=== PATIENT | male | born 1980 | race Hispanic/Latino ===

== ENCOUNTER 2016-10-14 10:52 | Emergency (ER) | payer SELFPAY ==
[2016-10-14 11:26] VITALS: BP 131/92
[2016-10-14 12:41] LABS: Urine Drugs of Abuse Note Disclamer
[2016-10-14 12:51] LABS: Bilirubin,Urine NEG (Negative); Blood,Urine NEG (Negative); Ketones,Urine NEG (Negative); Leukocyte Esterase,Urine NEG (Negative); Mucus,Urine FEW /HPF; Nitrite,Urine NEG (Negative); Protein,Urine <15 mg/dL mg/dL (Negative); Urobilinogen,Urine < 2.0 mg/dL (<2.0)
--- NOTE | 2016-10-14 13:01 | Emergency Department Report ---
HPI - General Chief Complaint: Medical Clearance Time Seen by Provider: 10/14/16 12:01 - HPI HPI: 36-year-old male past medical history diabetes presents with complaint of running out of his insulin one week ago. Patient states he is on Humalog 70/ 30. Has not taken any insulin in the last several days. Patient states he feels somewhat fatigued. Denies any chest pain palpitations no nausea no vomiting shortness of breath. Patient does complain of increased urinary frequency and thirst. ED Past Medical Hx - Medications Home Medications: Home Medications Medication Instructions Recorded Confirmed Last Taken Type HumaLOG VIAL 10/14/16 10/07/16 History 27 units Insulin NPH Hum/Reg Insulin Hm 100 unit SQ QDAY #1 insuln.pen 10/14/16 Unknown Rx [Humulin 70/30 Kwikpen] ED Review of Systems ROS: Stated complaint: HYPERGLYCEMIA Other details as noted in HPI Constitutional: denies: chills, fever Eyes: denies: eye pain, eye discharge, vision change ENT: denies: ear pain, throat pain Respiratory: denies: cough, shortness of breath, wheezing Cardiovascular: denies: chest pain, palpitations Endocrine: no symptoms reported, see HPI, increased thirst, increased urine Gastrointestinal: denies: abdominal pain, nausea, diarrhea Genitourinary: denies: urgency, dysuria Musculoskeletal: denies: back pain, joint swelling, arthralgia Skin: denies: rash, lesions Neurological: denies: headache, weakness, paresthesias Psychiatric: denies: anxiety, depression Hematological/Lymphatic: denies: easy bleeding, easy bruising Physical Exam - Physical Exam Vital Signs: Vital Signs 10/14/16 11:23 Temperature 98 F Pulse Rate 101 H Respiratory 18 Rate Blood Pressure 131/92 O2 Sat by Pulse 99 Oximetry General: General: Patient appears somewhat uncomfortable. Accompanied by his sister Oriented x 3, slightly agitated affect . Ambulating without difficulty. Head: Normocephalic, atraumatic, no visible or palpable masses, depressions, or scaring. Eyes: BENJA, EOMI Heart: S1-S2 no murmurs Lungs: Clear to auscultation laterally Abdomen: Bowel sounds normal, no tenderness, organomegaly, masses, or hernia Back: Spine normal without deformity or tenderness, no CVA tenderness Neurologic: CN 2-12 normal. ED Course Vital Signs 10/14/16 11:23 Temperature 98 F Pulse Rate 101 H Respiratory 18 Rate Blood Pressure 131/92 O2 Sat by Pulse 99 Oximetry ED Medical Decision Making - Lab Data Result diagrams: 10/14/16 Unknown - Medical Decision Making A/P: Hyperglycemia, uncontrolled diabetes 1-patient openly admitted he has not used his insulin in approximately one week. Patient appears somewhat fatigued. I convinced patient that I'm concerned that he may be seriously hyperglycemic and I want to assess labs on him to determine if he is entering diabetic ketoacidosis. Patient stated that he just wants his prescription for insulin and will follow-up with a primary doctor. Patient's sister present for this conversation. Patient was alert and oriented 3, fully lucid and conversant. I explained to the patient that he is at risk for diabetic coma and if he is hyperglycemic and acidotic. I explained to the patient the risks of leaving before I can fully determine this. Patient stated that he understood but simply wanted to go home and uses insulin at home. Requesting a prescription for his insulin. Pt claims that he is on Humalog 70/30. States he uses 15 units per day and sliding scale with meals. States he checks his glucose levels with a monitor at home. 2-patient elected to leave the ED for acute finish my full assessment, signed out AGAINST MEDICAL ADVICE despite my consultation that he stay for further testing and full assessment. Business Analyst [employer] Darin and patient's sister present for this conversation. 3-sided with prescription for his insulin and I provided referrals for primary care. I urged the patient's return to the ED as soon as possible at his earliest convenience or to return if he experiences any severe weakness fatigue lethargy nausea or vomiting chest pain shortness of breath. Patient's sister states that she will keep a close eye on him as well. 4- I notified Dr. Vu of my encounter with this patient Critical care attestation.: If time is entered above; I have spent that time in minutes in the direct care of this critically ill patient, excluding procedure time. ED Disposition Clinical Impression: Hyperglycemia, Uncontrolled blood glucose Disposition: LEFT AGAINST MEDICAL ADVICE Is pt being admited?: No Does the pt Need Aspirin: No Condition: Stable Instructions: Against Medical Advice (ED), Diabetic Hyperglycemia (ED) Prescriptions: Insulin NPH Hum/Reg Insulin Hm [Humulin 70/30 Kwikpen] 100 unit SQ QDAY #1 insuln.pen Referrals: [facility] [Outside] - 3-5 Days [facility] [Outside] - 3-5 Days LANCE CANO MD [Staff Physician] - 3-5 Days Forms: AMA Form Time of Disposition: 13:01
[2016-10-14 13:14] LABS: Basophils % (Auto) 0.8 % (0.0-1.8); Eosinophils % (Auto) 4.9 % (0.0-4.3); Hematocrit 43.1 % (35.5-45.6); Hemoglobin 14.5 gm/dl (11.8-15.2); Mean Corpuscular HGB Conc 34 % (32-34); Mean Corpuscular Hemoglobin 29 pg (28-32); Mean Corpuscular Volume 86 fl (84-94); Platelet Count 281 K/mm3 (140-440); Red Blood Count 4.98 M/mm3 (3.65-5.03); Red Cell Distribution Width 12.6 % (13.2-15.2); White Blood Count 7.9 K/mm3 (4.5-11.0)
[2016-10-14 13:38] LABS: Anion Gap 17 mmol/L; BUN/Creatinine Ratio 26.66; Blood Urea Nitrogen 16 mg/dL (9-20); Calcium 10.3 mg/dL (8.4-10.2); Carbon Dioxide 29 mmol/L (22-30); Chloride 93.6 mmol/L (98-107); Glucose 424 mg/dL (75-100); Potassium 4.7 mmol/L (3.6-5.0); Sodium 135 mmol/L (137-145)
== END 2016-10-14 13:00 | disposition left against medical advice (07) ==
LOC: ED 10:52
DX: E11.65 Type 2 diabetes mellitus with hyperglycemia (principal); Z79.4 Long term (current) use of insulin
CPT/HCPCS: 36415; 80048; 80307; 81001; 82550; 82805; 82962; 85025; 99283

== ENCOUNTER 2019-04-12 00:01 | Emergency (ER) | payer SELFPAY ==
[2019-04-12 00:14] VITALS: BP 124/83
[2019-04-12] MEDS ORDERED: HYDROcodone/ACETAMINOPHEN 5-325 MG TAB PO ONE (01:39)
--- NOTE | 2019-04-12 02:14 | Emergency Department Report ---
ED General Adult HPI - General Chief complaint: Rectal Pain Stated complaint: SPINE TO ANAL PAIN Time Seen by Provider: 04/12/19 01:37 Source: patient Mode of arrival: Ambulatory Limitations: No Limitations - History of Present Illness Initial comments: pt is a 39 y/o w/m with hx of hemorrhoids who presents for hemorrhoid x 3 days. pt denies fever no chills no n/v no rectal bleeding, Onset/Timin -: days(s) Location: buttocks (rectum) Radiation: non-radiation Severity scale (0 -10): 4 Quality: burning Consistency: intermittent Improves with: none Worsens with: none Associated Symptoms: denies other symptoms Treatments Prior to Arrival: none - Related Data Home Medications Medication Instructions Recorded Confirmed Last Taken HumaLOG VIAL 10/14/16 10/07/16 27 units Previous Rx's Medication Instructions Recorded Last Taken Type Insulin NPH Hum/Reg Insulin Hm 100 unit SQ QDAY #1 insuln.pen 10/14/16 Unknown Rx [Humulin 70/30 Kwikpen] Hydrocort/Pramoxine [Proctofoam-Hc] 1 applicatio [place] BID #1 can 04/12/19 Unknown Rx Ibuprofen [Motrin 800 MG tab] 800 mg PO Q8HR PRN #30 tablet 04/12/19 Unknown Rx Lidocaine [Lidocaine Cream] 30 gm TP PRN PRN #1 tube 04/12/19 Unknown Rx Allergies Allergy/AdvReac Type Severity Reaction Status Date / Time No Known Allergies Allergy Unverified 10/14/16 11:26 ED Review of Systems ROS: Stated complaint: SPINE TO ANAL PAIN Other details as noted in HPI Constitutional: denies: chills, fever Eyes: denies: eye pain, eye discharge, vision change ENT: denies: ear pain, throat pain Respiratory: denies: cough, shortness of breath, wheezing Cardiovascular: denies: chest pain, palpitations Endocrine: no symptoms reported Gastrointestinal: other (hemorrhoid). denies: abdominal pain, nausea, diarrhea, melena Genitourinary: denies: urgency, dysuria Musculoskeletal: denies: back pain, joint swelling, arthralgia Skin: denies: rash, lesions Neurological: denies: headache, weakness, paresthesias Psychiatric: denies: anxiety, depression Hematological/Lymphatic: denies: easy bleeding, easy bruising ED Past Medical Hx - Past Medical History Previous Medical History?: Yes Hx Diabetes: Yes Hx Seizures: Yes - Surgical History Past Surgical History?: Yes Additional Surgical History: Left eye - Social History Smoking Status: Current Every Day Smoker - Medications Home Medications: Home Medications Medication Instructions Recorded Confirmed Last Taken Type HumaLOG VIAL 10/14/16 10/07/16 History 27 units Insulin NPH Hum/Reg Insulin Hm 100 unit SQ QDAY #1 insuln.pen 10/14/16 Unknown Rx [Humulin 70/30 Kwikpen] Hydrocort/Pramoxine [Proctofoam-Hc] 1 applicatio [place] BID #1 can 04/12/19 Unknown Rx Ibuprofen [Motrin 800 MG tab] 800 mg PO Q8HR PRN #30 tablet 04/12/19 Unknown Rx Lidocaine [Lidocaine Cream] 30 gm TP PRN PRN #1 tube 04/12/19 Unknown Rx ED Physical Exam - General Limitations: No Limitations General appearance: alert, in no apparent distress - Head Head exam: Present: atraumatic, normocephalic - Eye Eye exam: Present: normal appearance - ENT ENT exam: Present: mucous membranes moist - Neck Neck exam: Present: normal inspection, full ROM. Absent: tenderness - Respiratory Respiratory exam: Present: normal lung sounds bilaterally. Absent: respiratory distress - Cardiovascular Cardiovascular Exam: Present: regular rate, normal rhythm. Absent: systolic murmur, diastolic murmur, rubs, gallop - GI/Abdominal GI/Abdominal exam: Present: soft, normal bowel sounds. Absent: distended, tenderness, guarding, rebound, rigid, bruit, hernia - Rectal Rectal exam: Present: hemorrhoids (internal no bleeding ), normal prostate - Extremities Exam Extremities exam: Present: normal inspection - Back Exam Back exam: Present: normal inspection, full ROM. Absent: tenderness, CVA tenderness (R), CVA tenderness (L) - Neurological Exam Neurological exam: Present: alert, oriented X3 - Psychiatric Psychiatric exam: Present: normal affect, normal mood - Skin Skin exam: Present: warm, dry, intact, normal color. Absent: rash ED Course Vital Signs 04/12/19 00:12 Temperature 97.1 F L Pulse Rate 108 H Respiratory 18 Rate Blood Pressure 124/83 O2 Sat by Pulse 99 Oximetry ED Medical Decision Making - Medical Decision Making this is internal hemorrhoids plan proctofoam, ibuprofen, lidocaine cream follow up with GI , pt verbalized agreement and understanding of discharge plan. there is no rectal bleeding no fever or chills, pt is tolerating bowel movements without complication. Critical care attestation.: If time is entered above; I have spent that time in minutes in the direct care of this critically ill patient, excluding procedure time. ED Disposition Clinical Impression: Hemorrhoids Qualifiers: Hemorrhoid type: first degree Qualified Code(s): K64.0 - First degree hemorrhoids Disposition: - TO HOME OR SELFCARE Is pt being admited?: No Does the pt Need Aspirin: No Condition: Stable Instructions: Hemorrhoids (ED) Prescriptions: Lidocaine [Lidocaine Cream] 30 gm TP PRN PRN #1 tube PRN Reason: pain burning itching Ibuprofen [Motrin 800 MG tab] 800 mg PO Q8HR PRN #30 tablet PRN Reason: pain Hydrocort/Pramoxine [Proctofoam-Hc] 1 applicatio [place] BID #1 can Referrals: [facility] [Provider Group] - 3-5 Days Forms: AMA Form, Work/School Release Form(ED) Time of Disposition: 02:21
== END 2019-04-12 02:20 | disposition home or self-care (01) ==
LOC: ED 00:01
DX: K64.9 Unspecified hemorrhoids (principal); F17.200 Nicotine dependence, unspecified, uncomplicated; E11.9 Type 2 diabetes mellitus without complications; R56.9 Unspecified convulsions; Z79.4 Long term (current) use of insulin; Z79.899 Other long term (current) drug therapy

== ENCOUNTER 2019-04-19 17:06 | Inpatient (IN) | payer OTHER ==
--- NOTE | 2019-04-19 17:12 | Event Note ---
ED Screening Note Date of service: 04/19/19 Time: 17:09 ED Screening Note: 39 yo male with PMH of DM presents with vomitting and feeling of something stuck in throat x this am FS: 457 This initial assessment/diagnostic orders/clinical plan/treatment(s) is/are subject to change based on patients health status, clinical progression and re- assessment by fellow clinical providers in the ED. Further treatment and workup at subsequent clinical providers discretion. Patient/guardian urged not to elope from the ED as their condition may be serious if not clinically assessed and managed. Initial orders include: labs inf reglan soft tissue neck
[2019-04-19 18:22] LABS: Basophils % (Auto) 0.3 % (0.0-1.8); Eosinophils # (Auto) 0.2 K/mm3 (0.0-0.4); Eosinophils % (Auto) 1.4 % (0.0-4.3); Hemoglobin 17.2 gm/dl (11.8-15.2); Lymphocytes # (Auto) 2.2 K/mm3 (1.2-5.4); Lymphocytes % (Auto) 14.8 % (13.4-35.0); Mean Corpuscular HGB Conc 35 % (32-34); Mean Corpuscular Volume 87 fl (84-94); Monocytes # (Auto) 0.9 K/mm3 (0.0-0.8); Monocytes % (Auto) 6.1 % (0.0-7.3); Platelet Count 408 K/mm3 (140-440); Red Blood Count 5.64 M/mm3 (3.65-5.03); Red Cell Distribution Width 12.5 % (13.2-15.2)
[2019-04-19 18:31] LABS: INR 0.87 (0.87-1.13)
--- NOTE | 2019-04-19 18:31 | XRay Report ---
Soft tissue neck 2 views. 04/19/2019. HISTORY: Something stuck in throat. FINDINGS: No soft tissue swelling, radiopaque foreign body or airway narrowing. The bones are grossly unremarkable. Signer Name: Chester Reynolds MD Signed: 04/19/2019 6:27 PM Workstation Name: [id number]
[2019-04-19 18:32] LABS: Partial Thromboplastin Time 32.8 Sec. (24.2-36.6)
--- NOTE | 2019-04-19 18:34 | Emergency Department Report ---
ED Abdominal Pain HPI - General Chief Complaint: Pain General Stated Complaint: SOMETHING IN THROAT Time Seen by Provider: 04/19/19 17:08 Source: patient Mode of arrival: Ambulatory Limitations: No Limitations - History of Present Illness Initial Comments: Patient is a 39-year-old male that presents emergency room with complaints of sore throat and abdominal pain and nausea vomiting and hematemesis. Patient states his abdominal pain is a 10 out of 10. The pain is a burning sensation. Patient states he worse with movement and eating. Patient states is better with rest. Patient states is worse with nausea vomiting. Patient states he started vomiting this morning at 9 AM. Patient states he has vomited multiple times. Patient states the last 2 times vomited, he vomited copious amounts of blood. Patient denies fever and chills. Patient denies chest pain. Patient states he also had 100 pound weight loss in the last 6 months. MD Complaint: abdominal pain -: Sudden Location: epigastric Radiation: none Migration to: no migration Severity: severe Severity scale (0 -10): 10 Quality: burning Consistency: constant Improves With: rest Worsens With: vomiting, movement Associated Symptoms: nausea, vomiting, hematemesis. denies: diarrhea, fever, chills, constipation, dysuria, hematochezia, melena, hematuria, anorexia, syncope - Related Data Home Medications Medication Instructions Recorded Confirmed Last Taken HumaLOG VIAL 10/14/16 10/07/16 27 units Previous Rx's Medication Instructions Recorded Last Taken Type Insulin NPH Hum/Reg Insulin Hm 100 unit SQ QDAY #1 insuln.pen 10/14/16 Unknown Rx [Humulin 70/30 Kwikpen] Hydrocort/Pramoxine [Proctofoam-Hc] 1 applicatio [place] BID #1 can 04/12/19 Unknown Rx Ibuprofen [Motrin 800 MG tab] 800 mg PO Q8HR PRN #30 tablet 04/12/19 Unknown Rx Lidocaine [Lidocaine Cream] 30 gm TP PRN PRN #1 tube 04/12/19 Unknown Rx Allergies Allergy/AdvReac Type Severity Reaction Status Date / Time No Known Allergies Allergy Unverified 10/14/16 11:26 ED Review of Systems ROS: Stated complaint: SOMETHING IN THROAT Other details as noted in HPI Constitutional: denies: chills, fever Eyes: denies: eye pain, eye discharge, vision change ENT: denies: ear pain, throat pain Respiratory: denies: cough, shortness of breath, wheezing Cardiovascular: denies: chest pain, palpitations Endocrine: no symptoms reported Gastrointestinal: abdominal pain, nausea, vomiting, hematemesis. denies: diarrhea Genitourinary: denies: urgency, dysuria Musculoskeletal: denies: back pain, joint swelling, arthralgia Skin: denies: rash, lesions Neurological: denies: headache, weakness, paresthesias Psychiatric: denies: anxiety, depression Hematological/Lymphatic: denies: easy bleeding, easy bruising ED Past Medical Hx - Past Medical History Previous Medical History?: Yes Hx Diabetes: Yes Hx Seizures: Yes Additional medical history: being tested for pancreatic cancer - Surgical History Past Surgical History?: Yes Additional Surgical History: Left eye - Family History Family history: no significant - Social History Smoking Status: Current Every Day Smoker Substance Use Type: None - Medications Home Medications: Home Medications Medication Instructions Recorded Confirmed Last Taken Type HumaLOG VIAL 10/14/16 10/07/16 History 27 units Insulin NPH Hum/Reg Insulin Hm 100 unit SQ QDAY #1 insuln.pen 10/14/16 Unknown Rx [Humulin 70/30 Kwikpen] Hydrocort/Pramoxine [Proctofoam-Hc] 1 applicatio [place] BID #1 can 04/12/19 Unknown Rx Ibuprofen [Motrin 800 MG tab] 800 mg PO Q8HR PRN #30 tablet 04/12/19 Unknown Rx Lidocaine [Lidocaine Cream] 30 gm TP PRN PRN #1 tube 04/12/19 Unknown Rx ED Physical Exam - General Limitations: No Limitations General appearance: alert, in no apparent distress - Head Head exam: Present: atraumatic, normocephalic - Eye Eye exam: Present: normal appearance - ENT ENT exam: Present: mucous membranes moist - Neck Neck exam: Present: normal inspection - Respiratory Respiratory exam: Present: normal lung sounds bilaterally. Absent: respiratory distress, wheezes, rales - Cardiovascular Cardiovascular Exam: Present: regular rate, normal rhythm. Absent: systolic murmur, diastolic murmur, rubs, gallop - GI/Abdominal GI/Abdominal exam: Present: soft, tenderness, normal bowel sounds - Rectal Rectal exam: Present: deferred - Extremities Exam Extremities exam: Present: normal inspection - Back Exam Back exam: Present: normal inspection - Neurological Exam Neurological exam: Present: alert, oriented X3 - Psychiatric Psychiatric exam: Present: normal affect, normal mood - Skin Skin exam: Present: warm, dry, intact, normal color. Absent: rash ED Course Vital Signs 04/19/19 04/19/19 04/19/19 18:33 20:14 20:59 Temperature Pulse Rate 120 H 110 H 110 H Respiratory 18 15 15 Rate Blood Pressure 127/88 Blood Pressure 122/93 127/88 [Right] O2 Sat by Pulse 99 99 99 Oximetry 04/19/19 21:00 Temperature 97.7 F Pulse Rate Respiratory Rate Blood Pressure Blood Pressure [Right] O2 Sat by Pulse Oximetry - Reevaluation(s) Reevaluation #1: I discussed all results with patient. I discussed plan of care with patient. Patient agrees with plan of care and admission. Patient will be admitted to the hospitalist service and into the ICU. 04/19/19 20:10 - Consultations Consultation #1: Hospitalist consult at for admission. Hospitalist admit patient. Bridge orders place. Patient to go to the ICU. 04/19/19 20:15 Consultation #2: GI paged. 04/19/19 20:29 I discussed case with Dr. Hernandez. Dr. Hernandez agrees with admission and states he will see the patient in the morning. Dr. Hernandez wants the patient to be nothing by mouth after midnight and to have an IV PPI. 04/19/19 20:38 ED Medical Decision Making - Lab Data Result diagrams: 04/19/19 18:07 04/19/19 20:58 - EKG Data -: EKG Interpreted by Me EKG shows normal: sinus rhythm, axis, intervals, QRS complexes, ST-T waves Rate: tachycardia - Radiology Data Radiology results: report reviewed, image reviewed No acute findings on CT or soft tissue neck. - Medical Decision Making Patient is a 39-year-old male that presents emergency room with complaints of nausea vomiting, vomiting blood, sore throat and abdominal pain. Patient found to be in DKA. Patient placed on DKA protocol and given fluids and insulin. Patient admitted to the hospitalist service and into the ICU. Patient's CT of the scan of the abdomen was negative for acute findings. Patient had a soft tissue neck x-ray done and was negative for acute findings. Patient's labs consistent with DKA. GI consult at for hematemesis and recommendations r eceived. - Differential Diagnosis electrolyte imbalance. Abdominal pain. Nausea vomiting. Vomiting blood. Critical Care Time: Yes Critical care time in (mins) excluding proc time.: 45 Critical care attestation.: If time is entered above; I have spent that time in minutes in the direct care of this critically ill patient, excluding procedure time. Critical Care Time: 45 minutes ED Disposition Clinical Impression: Gastroenteritis Hematemesis Qualifiers: Nausea presence: with nausea Qualified Code(s): K92.0 - Hematemesis Nausea & vomiting Qualifiers: Vomiting type: hematemesis Qualified Code(s): K92.0 - Hematemesis Gastritis Qualifiers: Gastritis type: unspecified gastritis Chronicity: acute Gastritis bleeding: with bleeding Qualified Code(s): K29.01 - Acute gastritis with bleeding Abdominal pain Qualifiers: Abdominal location: epigastric Qualified Code(s): R10.13 - Epigastric pain DKA (diabetic ketoacidoses) Qualifiers: Diabetes mellitus type: type 1 Diabetes mellitus complication detail: without coma Qualified Code(s): E10.10 - Type 1 diabetes mellitus with ketoacidosis without coma Disposition: DC-09 OP ADMIT IP TO THIS HOSP Is pt being admited?: Yes Does the pt Need Aspirin: No Condition: Critical Time of Disposition: 19:35
[2019-04-19 18:45] LABS: Alanine Aminotransferase 32 units/L (7-56); Albumin 4.7 g/dL (3.9-5); BUN/Creatinine Ratio 36; Blood Urea Nitrogen 32 mg/dL (9-20); Calcium 11.3 mg/dL (8.4-10.2); Hemolysis Index 13
[2019-04-19] MEDS ORDERED: SODIUM CHLORIDE 0.9% 1000 ML 1,000 ML IV ONE ×2 (19:26→19:27)
[2019-04-19] MEDS ORDERED: ONDANSETRON 4 MG/2 ML INJ IV ONE ×2 (19:30→20:37)
--- NOTE | 2019-04-19 19:43 | Cat Scan Report ---
CT ABDOMEN AND PELVIS WITH CONTRAST HISTORY: Epigastric pain, nausea and vomiting COMPARISON: None TECHNIQUE: Routine abdominal and pelvic CT exam performed following intravenous contrast administrat ion. The patient received 100 mL of IV Omnipaque 300. All CT scans at this location are performed usi ng CT dose reduction for ALARA by means of automated exposure control. FINDINGS: CT ABDOMEN: Lung Bases: No significant abnormality. Liver: No significant abnormality. Biliary: No significant abnormality. Spleen: No significant abnormality. Unenlarged. Pancreas: No significant abnormality. Adrenals: No significant abnormality. Kidneys: There are multiple tiny renal cortical cysts bilaterally. There is no hydronephrosis or farzad d renal mass. Lymphatics: No lymphadenopathy. Vasculature: No significant abnormality. Bowel/Peritoneum: No significant abnormality. No free air. No free fluid. Normal appendix. CT PELVIC: : No significant abnormality. Lymphatics: No lymphadenopathy. Osseous Structures: No aggressive appearing osseous lesions. Additional Findings: None IMPRESSION: 1. No acute or concerning abnormality. Signer Name: Moshe Flores MD Signed: 04/19/2019 7:39 PM Workstation Name: [id number]
[2019-04-19] MEDS ORDERED: INSULIN REGULAR, HUMAN 100 UNITS in SODIUM CHLORIDE 0.9% 99 ML IV SCH ×2 (20:00→23:00)
[2019-04-19 20:17] LABS: BUN/Creatinine Ratio 39; Blood Urea Nitrogen 31 mg/dL (9-20); Calcium 10.9 mg/dL (8.4-10.2); Hemolysis Index 13
[2019-04-19] MEDS ORDERED: PANTOPRAZOLE 40 MG INJ IV ONE (20:29)
[2019-04-19 21:24] LABS: Bacteria,Urine 1+ /HPF (Negative); Bilirubin,Urine NEG (Negative); Blood,Urine NEG (Negative); Color,Urine Straw (Yellow); Mucus,Urine FEW /HPF; Protein,Urine <15 mg/dL mg/dL (Negative); Urobilinogen,Urine < 2.0 mg/dL (<2.0)
[2019-04-19 21:30] LABS: BUN/Creatinine Ratio 37; Blood Urea Nitrogen 26 mg/dL (9-20); Calcium 9.4 mg/dL (8.4-10.2); Hemolysis Index 27
[2019-04-19] MEDS ORDERED: DEXTROSE 50% IN WATER (25GM) 50 ML SYRINGE IV PRN (22:32)
[2019-04-19] MEDS ORDERED: ONDANSETRON 4 MG/2 ML INJ IV PRN (22:48)
[2019-04-19] MEDS ORDERED: D5W/0.45% NACL/KCL 20 MEQ 20 MEQ/1,000 ML BAG IV SCH (23:00)
[2019-04-19] MEDS: SODIUM CHLORIDE 0.9% 1000 ML 1,000 ML IV SCH (23:12)
--- NOTE | 2019-04-20 02:41 | History and Physical Report ---
History of Present Illness Date of examination: 04/19/19 Date of admission: 04/19/19 20:24 Chief complaint: Nausea and vomiting Abdominal pain History of present illness: 39-year-old white male with known history of diabetes mellitus presented to the emergency room today with 1 day history of nausea and vomiting and abdominal pain. He also indicates that he has been vomiting blood today. Abdominal pain is said to be about 10/10 in severity and pain is more in the upper abdomen. On a scale of 10 pain was about 10/10 upon arrival in the emergency room. Patient admits that he has not been quite compliant with his medication as he has had some financial difficulty. Upon arrival in the emergency room he was found to be in DKA and subsequently started on fluid and the DKA insulin protocol. Past History Past Medical History: diabetes Past Surgical History: Other (Left eye surgery 1981) Social history: smoking (Smokes about half pack of cigarette daily) Family history: diabetes (Father has diabetes mellitus) Medications and Allergies Allergies Allergy/AdvReac Type Severity Reaction Status Date / Time No Known Allergies Allergy Unverified 10/14/16 11:26 Home Medications Medication Instructions Recorded Confirmed Last Taken Type HumaLOG VIAL 10/14/16 10/07/16 History 27 units Insulin NPH Hum/Reg Insulin Hm 100 unit SQ QDAY #1 insuln.pen 10/14/16 Unknown Rx [Humulin 70/30 Kwikpen] Hydrocort/Pramoxine [Proctofoam-Hc] 1 applicatio [place] BID #1 can 04/12/19 Unknown Rx Ibuprofen [Motrin 800 MG tab] 800 mg PO Q8HR PRN #30 tablet 04/12/19 Unknown Rx Lidocaine [Lidocaine Cream] 30 gm TP PRN PRN #1 tube 04/12/19 Unknown Rx Active Meds: Active Medications Dextrose (D50w (25gm) Syringe) 0 ml IV Q30MIN PRN; Protocol PRN Reason: Hypoglycemia Insulin Human Regular 100 (units/ Sodium Chloride) 100 mls @ 1 mls/hr IV TITR MERON; Protocol Last Titration: 04/20/19 01:10 Dose: 4 units/hr, 4 mls/hr Documented by: Potassium Chloride/Dextrose/Sod Cl (D5w/0.45% Nacl/Kcl 20 Meq) 20 meq in 1,000 mls @ 125 mls/hr IV DIRECT MERON Sodium Chloride (Nacl 0.9% 1000 Ml) 1,000 mls @ 125 mls/hr IV DIRECT MERON; Protocol Last Admin: 04/19/19 23:12 Dose: 125 mls/hr Documented by: Ondansetron HCl (Zofran) 4 mg IV Q4H PRN PRN Reason: Nausea And Vomiting Pantoprazole Sodium (Protonix) 40 mg IV BID MERON Sodium Chloride (Sodium Chloride Flush Syringe 10 Ml) 10 ml IV BID MERON Sodium Chloride (Sodium Chloride Flush Syringe 10 Ml) 10 ml IV PRN PRN PRN Reason: LINE FLUSH Review of Systems Constitutional: weight loss Gastrointestinal: abdominal pain, nausea, vomiting, hematemesis Exam - Constitutional Vitals: Temp Pulse Resp BP Pulse Ox 97.8 F 114 H 17 129/86 96 04/19/19 23:32 04/20/19 00:50 04/20/19 00:50 04/20/19 00:50 04/20/19 00:50 General appearance: Present: no acute distress, well-nourished - EENT Eyes: Present: PERRL, EOM intact ENT: hearing intact, clear oral mucosa, dentition normal - Neck Neck: Present: supple, normal ROM - Respiratory Respiratory effort: normal Respiratory: bilateral: CTA - Cardiovascular Rhythm: regular Heart Sounds: Present: S1 & S2 - Extremities Extremities: no ischemia, No edema Peripheral Pulses: within normal limits - Abdominal General gastrointestinal: Present: soft, tender (Mild tenderness in the epigastric region), non-distended - Integumentary Integumentary: Present: clear, warm, dry - Musculoskeletal Musculoskeletal: strength equal bilaterally - Psychiatric Psychiatric: appropriate mood/affect, intact judgment & insight, cooperative - Neurologic Neurologic: CNII-XII intact, moves all extremities Results - Labs CBC & Chem 7: 04/19/19 18:07 04/19/19 20:58 Labs: Abnormal lab results 04/19/19 04/19/19 04/19/19 Range/Units 17:18 18:07 18:07 WBC 14.9 H (4.5-11.0) K/mm3 RBC 5.64 H (3.65-5.03) M/mm3 Hgb 17.2 H (11.8-15.2) gm/dl Hct 49.0 H (35.5-45.6) % MCHC 35 H (32-34) % RDW 12.5 L (13.2-15.2) % [place] # 0.9 H (0.0-0.8) K/mm3 Seg Neutrophils % 77.4 H (40.0-70.0) % Seg Neutrophils # 11.5 H (1.8-7.7) K/mm3 PT (12.2-14.9) Sec. Sodium 128 L (137-145) mmol/L Chloride 82.9 L (98-107) mmol/L Carbon Dioxide 17 L (22-30) mmol/L BUN 32 H (9-20) mg/dL Creatinine (0.8-1.5) mg/dL Glucose 588 H* (75-100) mg/dL POC Glucose 467 H (70-105) Calcium 11.3 H (8.4-10.2) mg/dL Alkaline Phosphatase 165 H (35-129) units/L Total Protein 8.3 H (6.3-8.2) g/dL Lipase 9 L (13-60) units/L Ur Specific [place] (1.003-1.030) 04/19/19 04/19/19 04/19/19 Range/Units 18:07 19:32 20:20 WBC (4.5-11.0) K/mm3 RBC (3.65-5.03) M/mm3 Hgb (11.8-15.2) gm/dl Hct (35.5-45.6) % MCHC (32-34) % RDW (13.2-15.2) % [place] # (0.0-0.8) K/mm3 Seg Neutrophils % (40.0-70.0) % Seg Neutrophils # (1.8-7.7) K/mm3 PT 11.8 L (12.2-14.9) Sec. Sodium 130 L (137-145) mmol/L Chloride 85.6 L (98-107) mmol/L Carbon Dioxide 19 L (22-30) mmol/L BUN 31 H (9-20) mg/dL Creatinine (0.8-1.5) mg/dL Glucose 542 H* (75-100) mg/dL POC Glucose (70-105) Calcium 10.9 H (8.4-10.2) mg/dL Alkaline Phosphatase (35-129) units/L Total Protein (6.3-8.2) g/dL Lipase (13-60) units/L Ur Specific [place] 1.041 H (1.003-1.030) 04/19/19 04/19/19 04/19/19 Range/Units 20:58 21:26 22:05 WBC (4.5-11.0) K/mm3 RBC (3.65-5.03) M/mm3 Hgb (11.8-15.2) gm/dl Hct (35.5-45.6) % MCHC (32-34) % RDW (13.2-15.2) % [place] # (0.0-0.8) K/mm3 Seg Neutrophils % (40.0-70.0) % Seg Neutrophils # (1.8-7.7) K/mm3 PT (12.2-14.9) Sec. Sodium 136 L (137-145) mmol/L Chloride 95.5 L (98-107) mmol/L Carbon Dioxide 20 L (22-30) mmol/L BUN 26 H (9-20) mg/dL Creatinine 0.7 L (0.8-1.5) mg/dL Glucose 393 H (75-100) mg/dL POC Glucose 337 H 363 H (70-105) Calcium (8.4-10.2) mg/dL Alkaline Phosphatase (35-129) units/L Total Protein (6.3-8.2) g/dL Lipase (13-60) units/L Ur Specific [place] (1.003-1.030) 04/19/19 04/20/19 04/20/19 Range/Units 23:07 00:05 01:16 WBC (4.5-11.0) K/mm3 RBC (3.65-5.03) M/mm3 Hgb (11.8-15.2) gm/dl Hct (35.5-45.6) % MCHC (32-34) % RDW (13.2-15.2) % [place] # (0.0-0.8) K/mm3 Seg Neutrophils % (40.0-70.0) % Seg Neutrophils # (1.8-7.7) K/mm3 PT (12.2-14.9) Sec. Sodium (137-145) mmol/L Chloride (98-107) mmol/L Carbon Dioxide (22-30) mmol/L BUN (9-20) mg/dL Creatinine (0.8-1.5) mg/dL Glucose (75-100) mg/dL POC Glucose 305 H 241 H 204 H (70-105) Calcium (8.4-10.2) mg/dL Alkaline Phosphatase (35-129) units/L Total Protein (6.3-8.2) g/dL Lipase (13-60) units/L Ur Specific [place] (1.003-1.030) 04/20/19 Range/Units 02:07 WBC (4.5-11.0) K/mm3 RBC (3.65-5.03) M/mm3 Hgb (11.8-15.2) gm/dl Hct (35.5-45.6) % MCHC (32-34) % RDW (13.2-15.2) % [place] # (0.0-0.8) K/mm3 Seg Neutrophils % (40.0-70.0) % Seg Neutrophils # (1.8-7.7) K/mm3 PT (12.2-14.9) Sec. Sodium (137-145) mmol/L Chloride (98-107) mmol/L Carbon Dioxide (22-30) mmol/L BUN (9-20) mg/dL Creatinine (0.8-1.5) mg/dL Glucose (75-100) mg/dL POC Glucose 199 H (70-105) Calcium (8.4-10.2) mg/dL Alkaline Phosphatase (35-129) units/L Total Protein (6.3-8.2) g/dL Lipase (13-60) units/L Ur Specific [place] (1.003-1.030) Assessment and Plan - Patient Problems (1) DKA (diabetic ketoacidoses) Current Visit: Yes Status: Acute Qualifiers: Diabetes mellitus type: type 1 Diabetes mellitus complication detail: without coma Qualified Code(s): E10.10 - Type 1 diabetes mellitus with ketoacidosis without coma Plan to address problem: Patient started on insulin drip for DKA protocol. We will monitor blood glucose closely. (2) Gastritis Current Visit: Yes Status: Acute Qualifiers: Gastritis type: unspecified gastritis Chronicity: acute Gastritis bleeding: with bleeding Qualified Code(s): K29.01 - Acute gastritis with b leeding Plan to address problem: Hematemesis probably secondary to gastritis/retching from nausea vomiting. Will place on proton pump inhibitor. We will also place a consult to gastroenterology for further evaluation. (3) Nausea & vomiting Current Visit: Yes Status: Acute Qualifiers: Vomiting type: hematemesis Qualified Code(s): K92.0 - Hematemesis Plan to address problem: Patient placed on antiemetic PRN for nausea vomiting (4) DVT prophylaxis Current Visit: Yes Status: Acute Plan to address problem: He has been placed on sequential compression device (5) Full code status Current Visit: Yes Status: Acute
[2019-04-20 08:59] LABS: BUN/Creatinine Ratio 36; Blood Urea Nitrogen 18 mg/dL (9-20); Calcium 9.7 mg/dL (8.4-10.2); Hemolysis Index 6
[2019-04-20] MEDS: PANTOPRAZOLE 40 MG INJ IV SCH ×2 (10:17→22:56)
[2019-04-20 10:24] LABS: BUN/Creatinine Ratio 38; Blood Urea Nitrogen 19 mg/dL (9-20); Calcium 9.8 mg/dL (8.4-10.2); Hemolysis Index 8
--- NOTE | 2019-04-20 11:03 | Gastroenterology Consultation ---
History of Present Illness - Reason for Consult Consult date: 04/20/19 Hematemesis Requesting physician: MATT DREW III - History of Present Illness The patient is a 39 yo male with IDDM who presents with n/v/hematemesis; pt found to be in DKA on admission. Currently in the ICU on insulin drip. he felt unwell for 1 day prior to admission with n/v. He has multiple non-bloody emesis, followed by episodes of hematemesis upon arrival. No further episodes since admission. Hgb 17. No recent nsaid use. denies melena, brpb, or abd pain. + weight loss in the past year. Non compliant with insulin at home. Past History Past Medical History: diabetes Past Surgical History: Other (Left eye surgery 1981) Social history: smoking (Smokes about half pack of cigarette daily) Family history: diabetes (Father has diabetes mellitus) Medications and Allergies Allergies Allergy/AdvReac Type Severity Reaction Status Date / Time No Known Allergies Allergy Unverified 10/14/16 11:26 Home Medications Medication Instructions Recorded Confirmed Last Taken Type HumaLOG VIAL 10/14/16 10/07/16 History 27 units Insulin NPH Hum/Reg Insulin Hm 100 unit SQ QDAY #1 insuln.pen 10/14/16 04/20/19 Unknown Rx [Humulin 70/30 Kwikpen] Hydrocort/Pramoxine [Proctofoam-Hc] 1 applicatio [place] BID #1 can 04/12/19 04/20/19 Unknown Rx Ibuprofen [Motrin 800 MG tab] 800 mg PO Q8HR PRN #30 tablet 04/12/19 04/20/19 Unknown Rx Lidocaine [Lidocaine Cream] 30 gm TP PRN PRN #1 tube 04/12/19 04/20/19 Unknown Rx Active Meds: Active Medications Dextrose (D50w (25gm) Syringe) 0 ml IV Q30MIN PRN; Protocol PRN Reason: Hypoglycemia Insulin Human Regular 100 (units/ Sodium Chloride) 100 mls @ 1 mls/hr IV TITR MERON; Protocol Last Titration: 04/20/19 10:17 Dose: 2 units/hr, 2 mls/hr Documented by: Potassium Chloride/Dextrose/Sod Cl (D5w/0.45% Nacl/Kcl 20 Meq) 20 meq in 1,000 mls @ 125 mls/hr IV DIRECT MERON Last Admin: 04/20/19 02:05 Dose: 125 mls/hr Documented by: Sodium Chloride (Nacl 0.9% 1000 Ml) 1,000 mls @ 125 mls/hr IV DIRECT MERON; Protocol Last Infusion: 04/20/19 02:05 Dose: 0 mls/hr Documented by: Ondansetron HCl (Zofran) 4 mg IV Q4H PRN PRN Reason: Nausea And Vomiting Pantoprazole Sodium (Protonix) 40 mg IV BID MERON Last Admin: 04/20/19 10:17 Dose: 40 mg Documented by: Sodium Chloride (Sodium Chloride Flush Syringe 10 Ml) 10 ml IV BID MERON Last Admin: 04/20/19 10:21 Dose: 10 ml Documented by: Sodium Chloride (Sodium Chloride Flush Syringe 10 Ml) 10 ml IV PRN PRN PRN Reason: LINE FLUSH Reviewed/updated patient's home and current medications Review of Systems - Review of Systems All systems: negative (per HPI) Exam - Constitutional Vital Signs: Temp Pulse Resp BP Pulse Ox 98.9 F 98 H 13 113/77 97 04/20/19 07:43 04/20/19 08:21 04/20/19 08:21 04/20/19 08:21 04/20/19 08:21 General appearance: no acute distress, other (thin male) - Respiratory Respiratory effort: normal Respiratory: bilateral: CTA - Cardiovascular Rhythm: regular Heart Sounds: Present: S1 & S2 Extremities: No edema, Full ROM - Gastrointestinal General gastrointestinal: Present: soft, non-tender, non-distended - Integumentary Integumentary: Present: clear, warm - Neurologic Neurological: alert and oriented x3 - Psychiatric Psychiatric: appropriate mood/affect - Labs CBC & Chem 7: 04/19/19 18:07 04/20/19 09:12 Lab Results: Laboratory Results - last 24 hr 04/19/19 04/19/19 04/19/19 17:18 18:07 18:07 WBC 14.9 H RBC 5.64 H Hgb 17.2 H Hct 49.0 H MCV 87 MCH 31 MCHC 35 H RDW 12.5 L Plt Count 408 Lymph % (Auto) 14.8 Gem % (Auto) 6.1 Eos % (Auto) 1.4 Baso % (Auto) 0.3 Lymph # 2.2 Gem # 0.9 H Eos # 0.2 Baso # 0.0 Seg Neutrophils % 77.4 H Seg Neutrophils # 11.5 H PT INR APTT Sodium 128 L Potassium 5.0 Chloride 82.9 L Carbon Dioxide 17 L Anion Gap 33 BUN 32 H Creatinine 0.9 Estimated GFR > 60 BUN/Creatinine Ratio 36 Glucose 588 H* POC Glucose 467 H Calcium 11.3 H Phosphorus Magnesium Total Bilirubin 0.60 AST 12 ALT 32 Alkaline Phosphatase 165 H Troponin T Total Protein 8.3 H Albumin 4.7 Albumin/Globulin Ratio 1.3 Lipase 9 L Urine Color Urine Turbidity Urine pH Ur Specific [place] Urine Protein Urine Glucose (UA) Urine Ketones Urine Blood Urine Nitrite Urine Bilirubin Urine Urobilinogen Ur Leukocyte Esterase Urine WBC (Auto) Urine RBC (Auto) Urine Bacteria (Auto) Urine Mucus 04/19/19 04/19/19 04/19/19 18:07 18:07 19:32 WBC RBC Hgb Hct MCV MCH MCHC RDW Plt Count Lymph % (Auto) Gem % (Auto) Eos % (Auto) Baso % (Auto) Lymph # Gem # Eos # Baso # Seg Neutrophils % Seg Neutrophils # PT 11.8 L INR 0.87 APTT 32.8 Sodium Potassium Chloride Carbon Dioxide Anion Gap BUN Creatinine Estimated GFR BUN/Creatinine Ratio Glucose POC Glucose Calcium Phosphorus 4.50 Magnesium 2.20 Total Bilirubin AST ALT Alkaline Phosphatase Troponin T < 0.010 Total Protein Albumin Albumin/Globulin Ratio Lipase Urine Color Urine Turbidity Urine pH Ur Specific [place] Urine Protein Urine Glucose (UA) Urine Ketones Urine Blood Urine Nitrite Urine Bilirubin Urine Urobilinogen Ur Leukocyte Esterase Urine WBC (Auto) Urine RBC (Auto) Urine Bacteria (Auto) Urine Mucus 04/19/19 04/19/19 04/19/19 19:32 20:20 20:58 WBC RBC Hgb Hct MCV MCH MCHC RDW Plt Count Lymph % (Auto) Gem % (Auto) Eos % (Auto) Baso % (Auto) Lymph # Gem # Eos # Baso # Seg Neutrophils % Seg Neutrophils # PT INR APTT Sodium 130 L 136 L Potassium 4.5 4.2 Chloride 85.6 L 95.5 L Carbon Dioxide 19 L 20 L Anion Gap 30 25 BUN 31 H 26 H Creatinine 0.8 0.7 L Estimated GFR > 60 > 60 BUN/Creatinine Ratio 39 37 Glucose 542 H* 393 H POC Glucose Calcium 10.9 H 9.4 Phosphorus Magnesium Total Bilirubin AST ALT Alkaline Phosphatase Troponin T Total Protein Albumin Albumin/Globulin Ratio Lipase Urine Color Straw Urine Turbidity Clear Urine pH 5.0 Ur Specific [place] 1.041 H Urine Protein <15 mg/dl Urine Glucose (UA) >=500 Urine Ketones 20 Urine Blood Neg Urine Nitrite Neg Urine Bilirubin Neg Urine Urobilinogen < 2.0 Ur Leukocyte Esterase Neg Urine WBC (Auto) 1.0 Urine RBC (Auto) 1.0 Urine Bacteria (Auto) 1+ Urine Mucus Few 04/19/19 04/19/19 04/19/19 21:26 22:05 23:07 WBC RBC Hgb Hct MCV MCH MCHC RDW Plt Count Lymph % (Auto) Gem % (Auto) Eos % (Auto) Baso % (Auto) Lymph # Gem # Eos # Baso # Seg Neutrophils % Seg Neutrophils # PT INR APTT Sodium Potassium Chloride Carbon Dioxide Anion Gap BUN Creatinine Estimated GFR BUN/Creatinine Ratio Glucose POC Glucose 337 H 363 H 305 H Calcium Phosphorus Magnesium Total Bilirubin AST ALT Alkaline Phosphatase Troponin T Total Protein Albumin Albumin/Globulin Ratio Lipase Urine Color Urine Turbidity Urine pH Ur Specific [place] Urine Protein Urine Glucose (UA) Urine Ketones Urine Blood Urine Nitrite Urine Bilirubin Urine Urobilinogen Ur Leukocyte Esterase Urine WBC (Auto) Urine RBC (Auto) Urine Bacteria (Auto) Urine Mucus 04/20/19 04/20/19 04/20/19 00:05 01:16 02:07 WBC RBC Hgb Hct MCV MCH MCHC RDW Plt Count Lymph % (Auto) Gem % (Auto) Eos % (Auto) Baso % (Auto) Lymph # Gem # Eos # Baso # Seg Neutrophils % Seg Neutrophils # PT INR APTT Sodium Potassium Chloride Carbon Dioxide Anion Gap BUN Creatinine Estimated GFR BUN/Creatinine Ratio Glucose POC Glucose 241 H 204 H 199 H Calcium Phosphorus Magnesium Total Bilirubin AST ALT Alkaline Phosphatase Troponin T Total Protein Albumin Albumin/Globulin Ratio Lipase Urine Color Urine Turbidity Urine pH Ur Specific [place] Urine Protein Urine Glucose (UA) Urine Ketones Urine Blood Urine Nitrite Urine Bilirubin Urine Urobilinogen Ur Leukocyte Esterase Urine WBC (Auto) Urine RBC (Auto) Urine Bacteria (Auto) Urine Mucus 04/20/19 04/20/19 04/20/19 03:10 04:18 05:19 WBC RBC Hgb Hct MCV MCH MCHC RDW Plt Count Lymph % (Auto) Gem % (Auto) Eos % (Auto) Baso % (Auto) Lymph # Gem # Eos # Baso # Seg Neutrophils % Seg Neutrophils # PT INR APTT Sodium Potassium Chloride Carbon Dioxide Anion Gap BUN Creatinine Estimated GFR BUN/Creatinine Ratio Glucose POC Glucose 177 H 176 H 212 H Calcium Phosphorus Magnesium Total Bilirubin AST ALT Alkaline Phosphatase Troponin T Total Protein Albumin Albumin/Globulin Ratio Lipase Urine Color Urine Turbidity Urine pH Ur Specific [place] Urine Protein Urine Glucose (UA) Urine Ketones Urine Blood Urine Nitrite Urine Bilirubin Urine Urobilinogen Ur Leukocyte Esterase Urine WBC (Auto) Urine RBC (Auto) Urine Bacteria (Auto) Urine Mucus 04/20/19 04/20/19 04/20/19 06:00 07:08 07:56 WBC RBC Hgb Hct MCV MCH MCHC RDW Plt Count Lymph % (Auto) Gem % (Auto) Eos % (Auto) Baso % (Auto) Lymph # Gem # Eos # Baso # Seg Neutrophils % Seg Neutrophils # PT INR APTT Sodium 144 D Potassium 3.7 Chloride 106.1 Carbon Dioxide 26 Anion Gap 16 BUN 18 Creatinine 0.5 L Estimated GFR > 60 BUN/Creatinine Ratio 36 Glucose 166 H POC Glucose 225 H 217 H Calcium 9.7 Phosphorus 2.10 L D Magnesium 1.90 Total Bilirubin AST ALT Alkaline Phosphatase Troponin T Total Protein Albumin Albumin/Globulin Ratio Lipase Urine Color Urine Turbidity Urine pH Ur Specific [place] Urine Protein Urine Glucose (UA) Urine Ketones Urine Blood Urine Nitrite Urine Bilirubin Urine Urobilinogen Ur Leukocyte Esterase Urine WBC (Auto) Urine RBC (Auto) Urine Bacteria (Auto) Urine Mucus 04/20/19 04/20/19 04/20/19 08:22 09:12 09:15 WBC RBC Hgb Hct MCV MCH MCHC RDW Plt Count Lymph % (Auto) Gem % (Auto) Eos % (Auto) Baso % (Auto) Lymph # Gem # Eos # Baso # Seg Neutrophils % Seg Neutrophils # PT INR APTT Sodium 143 Potassium 3.6 Chloride 105.1 Carbon Dioxide 26 Anion Gap 16 BUN 19 Creatinine 0.5 L Estimated GFR > 60 BUN/Creatinine Ratio 38 Glucose 123 H POC Glucose 148 H 116 H Calcium 9.8 Phosphorus Magnesium Total Bilirubin AST ALT Alkaline Phosphatase Troponin T Total Protein Albumin Albumin/Globulin Ratio Lipase Urine Color Urine Turbidity Urine pH Ur Specific [place] Urine Protein Urine Glucose (UA) Urine Ketones Urine Blood Urine Nitrite Urine Bilirubin Urine Urobilinogen Ur Leukocyte Esterase Urine WBC (Auto) Urine RBC (Auto) Urine Bacteria (Auto) Urine Mucus 04/20/19 10:26 WBC RBC Hgb Hct MCV MCH MCHC RDW Plt Count Lymph % (Auto) Gem % (Auto) Eos % (Auto) Baso % (Auto) Lymph # Gem # Eos # Baso # Seg Neutrophils % Seg Neutrophils # PT INR APTT Sodium Potassium Chloride Carbon Dioxide Anion Gap BUN Creatinine Estimated GFR BUN/Creatinine Ratio Glucose POC Glucose 120 H Calcium Phosphorus Magnesium Total Bilirubin AST ALT Alkaline Phosphatase Troponin T Total Protein Albumin Albumin/Globulin Ratio Lipase Urine Color Urine Turbidity Urine pH Ur Specific [place] Urine Protein Urine Glucose (UA) Urine Ketones Urine Blood Urine Nitrite Urine Bilirubin Urine Urobilinogen Ur Leukocyte Esterase Urine WBC (Auto) Urine RBC (Auto) Urine Bacteria (Auto) Urine Mucus Assessment and Plan 1. Hematemesis - in setting of DKA, and preceded by multiple non-bloody emesis episodes. presentation suggestive of MWT, other ddx includes esophagitis, PUD, etc. no further bleeding since admission and H/H normal (likely concentrated) on initial labs. cont PPI and conservative management from GI stand point while DKA is being managed. will reserve endoscopy for further signs of bleeding.
[2019-04-20] MEDS ORDERED: DEXTROSE 50% IN WATER (25GM) 50 ML SYRINGE IV PRN (11:47)
[2019-04-20] MEDS ORDERED: INSULIN GLARGINE 100 UNITS/ML SUB-Q SCH (12:00)
[2019-04-20 14:18] LABS: BUN/Creatinine Ratio 33; Blood Urea Nitrogen 20 mg/dL (9-20); Calcium 9.6 mg/dL (8.4-10.2); Hemolysis Index 8
--- NOTE | 2019-04-20 15:15 | Progress Note ---
Assessment and Plan Assessment and plan: 39m pw sensation that something was stuck in his throat and hematemesis -Hematemesis GI input appreciated, hg stable, appears to have resolved, cont PPI throat imaging neg DKA now resolved, transition to Sq insulins dvt ppx scd and early ambulation History Interval history: Review of systems Constitutional: No fevers, no malaise, no joint pains CVS: No chest pain, no orthopnea, no pedal edema GI: No abdominal pain, no diarrhea, no vomiting, no constipation Respiratory: No shortness of breath, no wheezing, no coughing Hospitalist Physical - Physical exam Narrative exam: General.: Appears well, no distress, nontoxic HEENT: Moist mucous membranes, extraocular muscles intact, no lymphadenopathy Neck: supple Cardiac: S1-S2 heard Lungs: clear to auscultation bilaterally Abdomen: soft , nontender, nondistended, bowel sounds positive Extremities: no edema clubbing or cyanosis Skin: no rash or lesions Neurologic: no gross focal deficits Psych: calm, and cooperative - Constitutional Vitals: Temp Pulse Resp BP Pulse Ox 98.6 F 94 H 17 121/91 98 04/20/19 12:00 04/20/19 13:00 04/20/19 13:00 04/20/19 13:00 04/20/19 13:00 General appearance: Present: no acute distress, well-nourished Results - Labs CBC & Chem 7: 04/21/19 08:21 04/21/19 08:21 Labs: Laboratory Last Values WBC 14.9 K/mm3 (4.5-11.0) H 04/19/19 18:07 RBC 5.64 M/mm3 (3.65-5.03) H 04/19/19 18:07 Hgb 17.2 gm/dl (11.8-15.2) H 04/19/19 18:07 Hct 49.0 % (35.5-45.6) H 04/19/19 18:07 MCV 87 fl (84-94) 04/19/19 18:07 MCH 31 pg (28-32) 04/19/19 18:07 MCHC 35 % (32-34) H 04/19/19 18:07 RDW 12.5 % (13.2-15.2) L 04/19/19 18:07 Plt Count 408 K/mm3 (140-440) 04/19/19 18:07 Lymph % (Auto) 14.8 % (13.4-35.0) 04/19/19 18:07 [place] % (Auto) 6.1 % (0.0-7.3) 04/19/19 18:07 Eos % (Auto) 1.4 % (0.0-4.3) 04/19/19 18:07 Baso % (Auto) 0.3 % (0.0-1.8) 04/19/19 18:07 Lymph # 2.2 K/mm3 (1.2-5.4) 04/19/19 18:07 [place] # 0.9 K/mm3 (0.0-0.8) H 04/19/19 18:07 Eos # 0.2 K/mm3 (0.0-0.4) 04/19/19 18:07 Baso # 0.0 K/mm3 (0.0-0.1) 04/19/19 18:07 Seg Neutrophils % 77.4 % (40.0-70.0) H 04/19/19 18:07 Seg Neutrophils # 11.5 K/mm3 (1.8-7.7) H 04/19/19 18:07 PT 11.8 Sec. (12.2-14.9) L 04/19/19 18:07 INR 0.87 (0.87-1.13) 04/19/19 18:07 APTT 32.8 Sec. (24.2-36.6) 04/19/19 18:07 Sodium 140 mmol/L (137-145) 04/20/19 13:06 Potassium 4.5 mmol/L (3.6-5.0) D 04/20/19 13:06 Chloride 102.4 mmol/L (98-107) 04/20/19 13:06 Carbon Dioxide 24 mmol/L (22-30) 04/20/19 13:06 Anion Gap 18 mmol/L 04/20/19 13:06 BUN 20 mg/dL (9-20) 04/20/19 13:06 Creatinine 0.6 mg/dL (0.8-1.5) L 04/20/19 13:06 Estimated GFR > 60 ml/min 04/20/19 13:06 BUN/Creatinine Ratio 33 % 04/20/19 13:06 Glucose 229 mg/dL (75-100) H 04/20/19 13:06 POC Glucose 138 (70-105) H 04/20/19 11:25 Calcium 9.6 mg/dL (8.4-10.2) 04/20/19 13:06 Phosphorus 2.10 mg/dL (2.5-4.5) L D 04/20/19 07:56 Magnesium 1.90 mg/dL (1.7-2.3) 04/20/19 07:56 Total Bilirubin 0.60 mg/dL (0.1-1.2) 04/19/19 18:07 AST 12 units/L (5-40) 04/19/19 18:07 ALT 32 units/L (7-56) 04/19/19 18:07 Alkaline Phosphatase 165 units/L (35-129) H 04/19/19 18:07 Troponin T < 0.010 ng/mL (0.00-0.029) 04/19/19 18:07 Total Protein 8.3 g/dL (6.3-8.2) H 04/19/19 18:07 Albumin 4.7 g/dL (3.9-5) 04/19/19 18:07 Albumin/Globulin Ratio 1.3 % 04/19/19 18:07 Lipase 9 units/L (13-60) L 04/19/19 18:07 Urine Color Straw (Yellow) 04/19/19 20:20 Urine Turbidity Clear (Clear) 04/19/19 20:20 Urine pH 5.0 (5.0-7.0) 04/19/19 20:20 Ur Specific [place] 1.041 (1.003-1.030) H 04/19/19 20:20 Urine Protein <15 mg/dl mg/dL (Negative) 04/19/19 20:20 Urine Glucose (UA) >=500 mg/dL (Negative) 04/19/19 20:20 Urine Ketones 20 mg/dL (Negative) 04/19/19 20:20 Urine Blood Neg (Negative) 04/19/19 20:20 Urine Nitrite Neg (Negative) 04/19/19 20:20 Urine Bilirubin Neg (Negative) 04/19/19 20:20 Urine Urobilinogen < 2.0 mg/dL (<2.0) 04/19/19 20:20 Ur Leukocyte Esterase Neg (Negative) 04/19/19 20:20 Urine WBC (Auto) 1.0 /HPF (0.0-6.0) 04/19/19 20:20 Urine RBC (Auto) 1.0 /HPF (0.0-6.0) 04/19/19 20:20 Urine Bacteria (Auto) 1+ /HPF (Negative) 04/19/19 20:20 Urine Mucus Few /HPF 04/19/19 20:20 Active Medications - Current Medications Current Medications: Generic Name Dose Route Start Last Admin Trade Name Freq PRN Reason Stop Dose Admin Dextrose 0 ml 04/19/19 22:32 D50w (25gm) Syringe IV Q30MIN PRN Hypoglycemia Protocol Dextrose 50 ml 04/20/19 11:47 D50w (25gm) Syringe IV Q30MIN PRN Hypoglycemia Protocol Insulin Human Regular 100 100 mls @ 1 mls/hr 04/19/19 20:00 04/20/19 11:04 units/ Sodium Chloride IV 2 units/hr TITR MERON 2 mls/hr Titration Protocol 1 UNITS/HR Sodium Chloride 1,000 mls @ 125 mls/hr 04/19/19 23:00 04/20/19 02:05 Nacl 0.9% 1000 Ml IV 0 mls/hr DIRECT MERON Infusion Protocol Insulin Glargine 20 units 04/20/19 12:00 04/20/19 12:50 Lantus SUB-Q 20 units Q24H MERON Administration Insulin Human Lispro 3 unit 04/20/19 16:30 Humalog SUB-Q AC MERON Insulin Human Lispro 0 unit 04/20/19 16:30 Humalog SUB-Q ACHS MERON Protocol Ondansetron HCl 4 mg 04/19/19 22:48 Zofran IV Q4H PRN Nausea And Vomiting Pantoprazole Sodium 40 mg 04/20/19 10:00 04/20/19 10:17 Protonix IV 40 mg BID MERON Administration Sodium Chloride 10 ml 04/20/19 10:00 04/20/19 10:21 Sodium Chloride Flush Syringe 10 Ml IV 10 ml BID MERON Administration Sodium Chloride 10 ml 04/19/19 22:47 Sodium Chloride Flush Syringe 10 Ml IV PRN PRN LINE FLUSH Nutrition/Malnutrition Assess - Dietary Evaluation Nutrition/Malnutrition Findings: Nutrition Notes Start: 04/20/19 11:53 Freq: Status: Active Protocol: Document 04/20/19 11:53 LP (Rec: 04/20/19 12:09 LP [id number]) Nutrition Notes Need for Assessment generated from: MD Order Initial or Follow up Assessment Current Diagnosis Diabetes Other Pertinent Diagnosis Gastritis, DKA, Abdominal pain , N/V Current Diet NPO Labs/Tests 04/19 Na 136 BUN 26 BG 393 Pertinent Medications D5 1/2 NS KCL 20mEq at 125ml/ hr Height 6 ft 1 in Weight 58 kg Usual Body Weight 115 kg [place] Body Weight (kg) 83.63 BMI 16.8 Weight change and time frame 50% wt loss in 8 months ( significant) Subjective/Other Information Consult for diet education. Pt lethargic at time of visit. Pt family states he was 255 lbs 8 months ago. 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 Wt loss possibly due to uncontrolled BG levels. Burn Absent Trauma Absent GI Symptoms Nausea,Vomiting Food Allergy No Current % PO Negligible Minimum of two criteria Yes Interpretation of Weight Loss (severe) >10% in 6 months Body Fat Depletion Moderate depletion (severe) Muscle Mass Moderate Depletion (severe) #1 Nutrition Diagnosis Malnutrition Etiology uncontrolled BG levels As Evidenced by Signs and Symptoms Wt loss of 50% in 8 months, fat and muscle mass loss Is patient on ventilator? No Is Patient Ambulatory and/or Out of Bed Yes REE-([facility]-ambulatory/OOB) [ 2013.544 NUTR.MSJOOB] Kcal/Kg value to use for calculation 40 Approximate Energy Requirements Using 2320 kcal/Kg Calculation Used for Recommendations Kcal/kg Additional Notes Protein needs are 70-87g (1.2- 1.5g/kg) Fluid needs are 1ml/kcal Nutrition Intervention Change Diet Order: Advance diet as feasible to consistent CHO Add Supplement/Snack (indicate name/kcal Glucerna BID once advanced /protein ) Provides kCal: 440 Provides Protein (gm) 20 Goal #1 Advanced diet as feasible Follow-Up By: 04/22/19 Additional Comments Follow for diet advancement/ intakes and diet education needs
[2019-04-20 15:20] LABS: BUN/Creatinine Ratio 36; Blood Urea Nitrogen 18 mg/dL (9-20); Calcium 9.5 mg/dL (8.4-10.2); Hemolysis Index 9
[2019-04-20] MEDS ORDERED: INSULIN LISPRO 100 UNIT/ML SUB-Q SCH (16:30)
[2019-04-20] MEDS: INSULIN LISPRO 100 UNIT/ML SUB-Q SCH ×3 (18:01→22:56)
[2019-04-20 23:55] LABS: Hematocrit 41.1 % (35.5-45.6); Hemoglobin 13.9 gm/dl (11.8-15.2)
[2019-04-21] MEDS: SODIUM CHLORIDE 0.9% 1000 ML 1,000 ML IV SCH (06:32)
[2019-04-21] MEDS ORDERED: INSULIN GLARGINE 100 UNITS/ML SUB-Q SCH (07:22)
--- NOTE | 2019-04-21 07:43 | Progress Note ---
Assessment and Plan Assessment and plan: 39m pw sensation that something was stuck in his throat and hematemesis -Hematemesis GI input appreciated, hg stable, appears to have resolved, cont PPI throat imaging neg DKA now resolved, transitioned to Sq insulins glc improving, at goal for inpt stay dvt ppx scd and early ambulation History Interval history: Review of systems Constitutional: No fevers, no malaise, no joint pains CVS: No chest pain, no orthopnea, no pedal edema GI: No abdominal pain, no diarrhea, no vomiting, no constipation Respiratory: No shortness of breath, no wheezing, no coughing Hospitalist Physical - Physical exam Narrative exam: General.: Appears well, no distress, nontoxic HEENT: Moist mucous membranes, extraocular muscles intact, no lymphadenopathy Neck: supple Cardiac: S1-S2 heard Lungs: clear to auscultation bilaterally Abdomen: soft , nontender, nondistended, bowel sounds positive Extremities: no edema clubbing or cyanosis Skin: no rash or lesions Neurologic: no gross focal deficits Psych: calm, and cooperative - Constitutional Vitals: Temp Pulse Resp BP Pulse Ox 98.1 F 104 H 16 110/77 97 04/21/19 05:10 04/21/19 05:10 04/21/19 05:10 04/21/19 05:10 04/21/19 05:10 General appearance: Present: no acute distress, well-nourished Results - Labs CBC & Chem 7: 04/21/19 08:21 04/21/19 08:21 Labs: Laboratory Last Values WBC 14.9 K/mm3 (4.5-11.0) H 04/19/19 18:07 RBC 5.64 M/mm3 (3.65-5.03) H 04/19/19 18:07 Hgb 13.9 gm/dl (11.8-15.2) D 04/20/19 23:25 Hct 41.1 % (35.5-45.6) D 04/20/19 23:25 MCV 87 fl (84-94) 04/19/19 18:07 MCH 31 pg (28-32) 04/19/19 18:07 MCHC 35 % (32-34) H 04/19/19 18:07 RDW 12.5 % (13.2-15.2) L 04/19/19 18:07 Plt Count 408 K/mm3 (140-440) 04/19/19 18:07 Lymph % (Auto) 14.8 % (13.4-35.0) 04/19/19 18:07 [place] % (Auto) 6.1 % (0.0-7.3) 04/19/19 18:07 Eos % (Auto) 1.4 % (0.0-4.3) 04/19/19 18:07 Baso % (Auto) 0.3 % (0.0-1.8) 04/19/19 18:07 Lymph # 2.2 K/mm3 (1.2-5.4) 04/19/19 18:07 [place] # 0.9 K/mm3 (0.0-0.8) H 04/19/19 18:07 Eos # 0.2 K/mm3 (0.0-0.4) 04/19/19 18:07 Baso # 0.0 K/mm3 (0.0-0.1) 04/19/19 18:07 Seg Neutrophils % 77.4 % (40.0-70.0) H 04/19/19 18:07 Seg Neutrophils # 11.5 K/mm3 (1.8-7.7) H 04/19/19 18:07 PT 11.8 Sec. (12.2-14.9) L 04/19/19 18:07 INR 0.87 (0.87-1.13) 04/19/19 18:07 APTT 32.8 Sec. (24.2-36.6) 04/19/19 18:07 Sodium 135 mmol/L (137-145) L 04/20/19 14:44 Potassium 4.0 mmol/L (3.6-5.0) 04/20/19 14:44 Chloride 99.9 mmol/L (98-107) 04/20/19 14:44 Carbon Dioxide 25 mmol/L (22-30) 04/20/19 14:44 Anion Gap 14 mmol/L 04/20/19 14:44 BUN 18 mg/dL (9-20) 04/20/19 14:44 Creatinine 0.5 mg/dL (0.8-1.5) L 04/20/19 14:44 Estimated GFR > 60 ml/min 04/20/19 14:44 BUN/Creatinine Ratio 36 % 04/20/19 14:44 Glucose 243 mg/dL (75-100) H 04/20/19 14:44 POC Glucose 223 (70-105) H 04/21/19 07:45 Calcium 9.5 mg/dL (8.4-10.2) 04/20/19 14:44 Phosphorus 2.10 mg/dL (2.5-4.5) L D 04/20/19 07:56 Magnesium 1.90 mg/dL (1.7-2.3) 04/20/19 07:56 Total Bilirubin 0.60 mg/dL (0.1-1.2) 04/19/19 18:07 AST 12 units/L (5-40) 04/19/19 18:07 ALT 32 units/L (7-56) 04/19/19 18:07 Alkaline Phosphatase 165 units/L (35-129) H 04/19/19 18:07 Troponin T < 0.010 ng/mL (0.00-0.029) 04/19/19 18:07 Total Protein 8.3 g/dL (6.3-8.2) H 04/19/19 18:07 Albumin 4.7 g/dL (3.9-5) 04/19/19 18:07 Albumin/Globulin Ratio 1.3 % 04/19/19 18:07 Lipase 9 units/L (13-60) L 04/19/19 18:07 Urine Color Straw (Yellow) 04/19/19 20:20 Urine Turbidity Clear (Clear) 04/19/19 20:20 Urine pH 5.0 (5.0-7.0) 04/19/19 20:20 Ur Specific [place] 1.041 (1.003-1.030) H 04/19/19 20:20 Urine Protein <15 mg/dl mg/dL (Negative) 04/19/19 20:20 Urine Glucose (UA) >=500 mg/dL (Negative) 04/19/19 20:20 Urine Ketones 20 mg/dL (Negative) 04/19/19 20:20 Urine Blood Neg (Negative) 04/19/19 20:20 Urine Nitrite Neg (Negative) 04/19/19 20:20 Urine Bilirubin Neg (Negative) 04/19/19 20:20 Urine Urobilinogen < 2.0 mg/dL (<2.0) 04/19/19 20:20 Ur Leukocyte Esterase Neg (Negative) 04/19/19 20:20 Urine WBC (Auto) 1.0 /HPF (0.0-6.0) 04/19/19 20:20 Urine RBC (Auto) 1.0 /HPF (0.0-6.0) 04/19/19 20:20 Urine Bacteria (Auto) 1+ /HPF (Negative) 04/19/19 20:20 Urine Mucus Few /HPF 04/19/19 20:20 Active Medications - Current Medications Current Medications: Generic Name Dose Route Start Last Admin Trade Name Freq PRN Reason Stop Dose Admin Dextrose 50 ml 04/20/19 11:47 D50w (25gm) Syringe IV Q30MIN PRN Hypoglycemia Protocol Sodium Chloride 1,000 mls @ 125 mls/hr 04/19/19 23:00 04/21/19 06:32 Nacl 0.9% 1000 Ml IV 125 mls/hr DIRECT MERON Administration Protocol Insulin Glargine 18 units 04/21/19 07:22 Lantus SUB-Q Q24H MERON Insulin Human Lispro 0 unit 04/20/19 16:30 04/20/19 22:56 Humalog SUB-Q Not Given ACHS MERON Protocol Insulin Human Lispro 5 unit 04/20/19 17:30 04/20/19 18:02 Humalog SUB-Q 5 unit AC MERON Administration Ondansetron HCl 4 mg 04/19/19 22:48 Zofran IV Q4H PRN Nausea And Vomiting Pantoprazole Sodium 40 mg 04/20/19 10:00 04/20/19 22:56 Protonix IV 40 mg BID MERON Administration Sodium Chloride 10 ml 04/20/19 10:00 04/20/19 22:56 Sodium Chloride Flush Syringe 10 Ml IV 10 ml BID MERON Administration Sodium Chloride 10 ml 04/19/19 22:47 Sodium Chloride Flush Syringe 10 Ml IV PRN PRN LINE FLUSH Nutrition/Malnutrition Assess - Dietary Evaluation Nutrition/Malnutrition Findings: Nutrition Notes Start: 04/20/19 11:53 Freq: Status: Active Protocol: Document 04/20/19 11:53 LP (Rec: 04/20/19 12:09 LP [id number]) Nutrition Notes Need for Assessment generated from: MD Order Initial or Follow up Assessment Current Diagnosis Diabetes Other Pertinent Diagnosis Gastritis, DKA, Abdominal pain , N/V Current Diet NPO Labs/Tests 04/19 Na 136 BUN 26 BG 393 Pertinent Medications D5 1/2 NS KCL 20mEq at 125ml/ hr Height 6 ft 1 in Weight 58 kg Usual Body Weight 115 kg [place] Body Weight (kg) 83.63 BMI 16.8 Weight change and time frame 50% wt loss in 8 months ( significant) Subjective/Other Information Consult for diet education. Pt lethargic at time of visit. Pt family states he was 255 lbs 8 months ago. 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 Wt loss possibly due to uncontrolled BG levels. Burn Absent Trauma Absent GI Symptoms Nausea,Vomiting Food Allergy No Current % PO Negligible Minimum of two criteria Yes Interpretation of Weight Loss (severe) >10% in 6 months Body Fat Depletion Moderate depletion (severe) Muscle Mass Moderate Depletion (severe) #1 Nutrition Diagnosis Malnutrition Etiology uncontrolled BG levels As Evidenced by Signs and Symptoms Wt loss of 50% in 8 months, fat and muscle mass loss Is patient on ventilator? No Is Patient Ambulatory and/or Out of Bed Yes REE-([facility]-ambulatory/OOB) [ 2013.544 NUTR.MSJOOB] Kcal/Kg value to use for calculation 40 Approximate Energy Requirements Using 2320 kcal/Kg Calculation Used for Recommendations Kcal/kg Additional Notes Protein needs are 70-87g (1.2- 1.5g/kg) Fluid needs are 1ml/kcal Nutrition Intervention Change Diet Order: Advance diet as feasible to consistent CHO Add Supplement/Snack (indicate name/kcal Glucerna BID once advanced /protein ) Provides kCal: 440 Provides Protein (gm) 20 Goal #1 Advanced diet as feasible Follow-Up By: 04/22/19 Additional Comments Follow for diet advancement/ intakes and diet education needs
[2019-04-21] MEDS: INSULIN LISPRO 100 UNIT/ML SUB-Q SCH ×4 (08:29→13:02)
[2019-04-21 09:18] LABS: Basophils # (Auto) 0.1 K/mm3 (0.0-0.1); Basophils % (Auto) 0.6 % (0.0-1.8); Eosinophils # (Auto) 0.2 K/mm3 (0.0-0.4); Eosinophils % (Auto) 2.1 % (0.0-4.3); Hematocrit 40.8 % (35.5-45.6); Hemoglobin 14.2 gm/dl (11.8-15.2); Lymphocytes # (Auto) 2.3 K/mm3 (1.2-5.4); Lymphocytes % (Auto) 21.6 % (13.4-35.0); Mean Corpuscular HGB Conc 35 % (32-34); Mean Corpuscular Volume 87 fl (84-94); Monocytes # (Auto) 0.7 K/mm3 (0.0-0.8); Monocytes % (Auto) 7.1 % (0.0-7.3); Platelet Count 300 K/mm3 (140-440); Red Cell Distribution Width 12.8 % (13.2-15.2)
[2019-04-21] MEDS: PANTOPRAZOLE 40 MG INJ IV SCH (09:34)
[2019-04-21 09:37] LABS: BUN/Creatinine Ratio 28; Blood Urea Nitrogen 14 mg/dL (9-20); Calcium 9.2 mg/dL (8.4-10.2); Hemolysis Index 7
[2019-04-21] MEDS ORDERED: POTASSIUM CHLORIDE ER 20 MEQ TAB PO ONE (10:07)
--- NOTE | 2019-04-21 12:28 | Discharge Summary ---
Providers - Providers Date of Admission: 04/19/19 20:24 Attending physician: SHAUN CRUZ MD 04/19/19 20:37 Consult to Physician [CONS] Routine Comment: Dr. Villa spoke with Dr. 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 He admitted that he had not been taking his insulin because he ran out of insurance. He is in the process of getting Medicaid. He then developed intractable nausea vomiting, after he vomited a few times he denies any vomiting blood. He prompted him to come into the hospital. He was found to have DKA, he received insulin ggt, improved and was weaned to insulin. -hematemesis was most likely due to marva sandy tear, it resolved, hg was stable, he was seen by GI. Patient put on PPI to aid healing of Marva-White tear. -he was put on novolin insulin upon dc as it is more affordable. the patient improved and was dc Preventative health counseling performed for 17 minutes Diagnosis -Hematemesis, due to marva sandy tear, UGIB -DKA uncontrolled DM -non adherence Disposition: DC-01 TO HOME OR SELFCARE Time spent for discharge: 33 mins Core Measure Documentation - Palliative Care Palliative Care/ Comfort Measures: Not Applicable - Core Measures Any of the following diagnoses?: none Exam - Constitutional Vitals: Temp Pulse Resp BP Pulse Ox 98.1 F 104 H 16 110/77 97 04/21/19 05:10 04/21/19 05:10 04/21/19 05:10 04/21/19 05:10 04/21/19 05:10 General appearance: Present: no acute distress, well-nourished - EENT Eyes: Present: PERRL ENT: hearing intact, clear oral mucosa - Neck Neck: Present: supple, normal ROM - Respiratory Respiratory effort: normal Respiratory: bilateral: CTA - Cardiovascular Heart Sounds: Present: S1 & S2. Absent: rub, click - Extremities Extremities: pulses symmetrical, No edema Peripheral Pulses: within normal limits - Abdominal General gastrointestinal: Present: soft, non-tender, non-distended, normal bowel sounds Male genitourinary: Present: normal - Integumentary Integumentary: Present: clear, warm, dry - Musculoskeletal Musculoskeletal: gait normal, strength equal bilaterally - Psychiatric Psychiatric: appropriate mood/affect, intact judgment & insight - Neurologic Neurologic: CNII-XII intact, moves all extremities Plan Follow up with: PRIMARY CARE,MD [Primary Care Provider] - 3-5 Days Prescriptions: Pantoprazole [Protonix TAB] 40 mg PO DAILY #30 tablet
[2019-04-21 12:41] VITALS: BP 95/63
[2019-04-22] MEDS ORDERED: PANTOPRAZOLE 40 MG TAB PO SCH (10:00)
== END 2019-04-21 13:50 | disposition home or self-care (01) | DRG 377 ==
LOC: ED 17:06 → CC1 20:24 → 3A 04-20 15:14
PROVIDERS: ADMIT Internal Medicine Geriatric Medicine; ATTEND Internal Medicine
DX: K29.01 Acute gastritis with bleeding (principal); E10.10 Type 1 diabetes mellitus with ketoacidosis without coma; F17.210 Nicotine dependence, cigarettes, uncomplicated; K22.6 Gastro-esophageal laceration-hemorrhage syndrome; Z83.3 Family history of diabetes mellitus; Z79.899 Other long term (current) drug therapy; Z79.4 Long term (current) use of insulin
CPT/HCPCS: 36415; 70360; 74177; 80048; 80053; 81001; 82962; 83690; 83735; 84100; 84484; 85014; 85018; 85025; 85610; 85730; 93005; 93010; 99406; G0378; C9113; J1815; J2405; J7030; Q9967

== ENCOUNTER 2019-08-02 19:13 | Emergency (ER) | payer SELFPAY ==
[2019-08-02 19:40] VITALS: BP 102/77
--- NOTE | 2019-08-02 19:55 | Event Note ---
ED Screening Note ED Screening Note: high blood sugar today o/w asymptomatic This initial assessment/diagnostic orders/clinical plan/treatment(s) is/are subject to change based on patients health status, clinical progression and re- assessment by fellow clinical providers in the ED. Further treatment and workup at subsequent clinical providers discretion. Patient/guardian urged not to elope from the ED as their condition may be serious if not clinically assessed and managed. Initial orders include: bmp ua
[2019-08-02 20:30] LABS: BUN/Creatinine Ratio 34; Blood Urea Nitrogen 24 mg/dL (9-20); Calcium 10.1 mg/dL (8.4-10.2); Hemolysis Index 11
[2019-08-02 23:19] LABS: Bilirubin,Urine NEG (Negative); Blood,Urine NEG (Negative); Color,Urine Straw (Yellow); Protein,Urine <15 mg/dL mg/dL (Negative); RBC,Urine < 1.0 /HPF (0.0-6.0); Urobilinogen,Urine < 2.0 mg/dL (<2.0); WBC,Urine < 1.0 /HPF (0.0-6.0)
== END 2019-08-02 21:00 | disposition left against medical advice (07) ==
LOC: ED 19:13
DX: R73.9 Hyperglycemia, unspecified (principal); Z53.21 Procedure and treatment not carried out due to patient leaving prior to being seen by health care provider
CPT/HCPCS: 36415; 80048; 81001; 82962

== ENCOUNTER 2020-04-09 16:20 | Emergency (ER) | payer SELFPAY ==
--- NOTE | 2020-04-09 16:33 | Event Note ---
ED Screening Note Date of service: 04/09/20 Time: 16:32 ED Screening Note: Patient complains of elevated sugar and possible DKA Complains of vomiting of body aches Dates compliance with his insulin Patient states glucose at home around 310 This initial assessment/diagnostic orders/clinical plan/treatment(s) is/are subject to change based on patients health status, clinical progression and re- assessment by fellow clinical providers in the ED. Further treatment and workup at subsequent clinical providers discretion. Patient/guardian urged not to elope from the ED as their condition may be serious if not clinically assessed and managed. Initial orders include: Main ED Labs
[2020-04-09 17:09] LABS: Basophils # (Auto) 0.1 K/mm3 (0.0-0.1); Basophils % (Auto) 0.7 % (0.0-1.8); Eosinophils # (Auto) 0.2 K/mm3 (0.0-0.4); Eosinophils % (Auto) 1.4 % (0.0-4.3); Hemoglobin 16.1 gm/dl (11.8-15.2); Lymphocytes # (Auto) 2.9 K/mm3 (1.2-5.4); Lymphocytes % (Auto) 23.7 % (13.4-35.0); Mean Corpuscular HGB Conc 34 % (32-34); Mean Corpuscular Volume 86 fl (84-94); Monocytes # (Auto) 0.7 K/mm3 (0.0-0.8); Monocytes % (Auto) 6.1 % (0.0-7.3); Platelet Count 396 K/mm3 (140-440); Red Blood Count 5.45 M/mm3 (3.65-5.03); Red Cell Distribution Width 12.8 % (13.2-15.2)
[2020-04-09 17:29] LABS: Bacteria,Urine 1+ /HPF (Negative); Bilirubin,Urine NEG (Negative); Blood,Urine NEG (Negative); Color,Urine Yellow (Yellow); Hyaline Casts,Urine 6 /LPF; Mucus,Urine 3+ /HPF
[2020-04-09] MEDS ORDERED: SODIUM CHLORIDE 0.9% 1000 ML 1,000 ML IV ONE (17:30)
[2020-04-09] MEDS ORDERED: ONDANSETRON 4 MG/2 ML INJ IV ONE (17:33)
--- NOTE | 2020-04-09 17:37 | Emergency Department Report ---
ED General Adult HPI - General Chief complaint: Hyperglycemia Stated complaint: DKA Time Seen by Provider: 04/09/20 16:23 Source: patient Mode of arrival: Wheelchair Limitations: No Limitations - History of Present Illness Initial comments: The patient presents to the emergency department with a chief complaint of elevated blood glucose over the last 3 weeks. Patient states that he is concerned he may be in DKA. Patient states that he is compliant with his insulin and checking his glucose levels but 3 weeks ago he left his glucose monitor at his ex-'s house [facility]. Patient states he is taking his insulin daily but has not been able to measure his glucose levels and has not been able to adjust his insulin. Patient complains of some nausea vomiting and some burning in his chest. Denies shortness of breath abdominal pain. -: Gradual Severity scale (0 -10): 0 Consistency: constant Improves with: none Worsens with: none Associated Symptoms: denies other symptoms Treatments Prior to Arrival: none - Related Data Previous Rx's Medication Instructions Recorded Last Taken Type Hydrocort/Pramoxine [Proctofoam-Hc] 1 applicatio [place] BID #1 can 04/12/19 Unknown Rx Lidocaine [Lidocaine Cream] 30 gm TP PRN PRN #1 tube 04/12/19 Unknown Rx Insulin NPH Hum/Reg Insulin Hm 20 unit SQ BIDAC #2 vial 04/21/19 Unknown Rx [Novolin 70-30 100 Unit/ml Vial] Insulin Regular, Human [Novolin R] See Protocol SQ Q24H #1 vial 04/21/19 Unknown Rx Pantoprazole [Protonix TAB] 40 mg PO DAILY #30 tablet 04/21/19 Unknown Rx Ibuprofen [Motrin] 800 mg PO Q8HR PRN #30 tablet 04/09/20 Unknown Rx cephALEXin [Keflex] 500 mg PO BID #14 capsule 04/09/20 Unknown Rx Allergies Allergy/AdvReac Type Severity Reaction Status Date / Time No Known Allergies Allergy Verified 04/09/20 16:28 ED Review of Systems ROS: Stated complaint: DKA Other details as noted in HPI Comment: All other systems reviewed and negative Constitutional: denies: chills, fever Eyes: denies: eye pain, eye discharge, vision change ENT: denies: ear pain, throat pain Respiratory: denies: cough, shortness of breath, wheezing Cardiovascular: chest pain. denies: palpitations Endocrine: no symptoms reported Gastrointestinal: nausea, vomiting. denies: abdominal pain, diarrhea Genitourinary: denies: urgency, dysuria Musculoskeletal: denies: back pain, joint swelling, arthralgia Skin: denies: rash, lesions Neurological: denies: headache, weakness, paresthesias Psychiatric: denies: anxiety, depression Hematological/Lymphatic: denies: easy bleeding, easy bruising ED Past Medical Hx - Past Medical History Hx Diabetes: Yes Hx Seizures: Yes Additional medical history: being tested for pancreatic cancer - Surgical History Additional Surgical History: Left eye - Social History Smoking Status: Never Smoker Substance Use Type: None - Medications Home Medications: Home Medications Medication Instructions Recorded Confirmed Last Taken Type Hydrocort/Pramoxine [Proctofoam-Hc] 1 applicatio [place] BID #1 can 04/12/19 04/20/19 Unknown Rx Lidocaine [Lidocaine Cream] 30 gm TP PRN PRN #1 tube 04/12/19 04/20/19 Unknown Rx Insulin NPH Hum/Reg Insulin Hm 20 unit SQ BIDAC #2 vial 04/21/19 Unknown Rx [Novolin 70-30 100 Unit/ml Vial] Insulin Regular, Human [Novolin R] See Protocol SQ Q24H #1 vial 04/21/19 Unknown Rx Pantoprazole [Protonix TAB] 40 mg PO DAILY #30 tablet 04/21/19 Unknown Rx Ibuprofen [Motrin] 800 mg PO Q8HR PRN #30 tablet 04/09/20 Unknown Rx cephALEXin [Keflex] 500 mg PO BID #14 capsule 04/09/20 Unknown Rx ED Physical Exam - General Limitations: No Limitations General appearance: alert, in no apparent distress - Head Head exam: Present: atraumatic, normocephalic - Eye Eye exam: Present: normal appearance, PERRL, EOMI - ENT ENT exam: Present: mucous membranes dry - Neck Neck exam: Present: normal inspection - Respiratory Respiratory exam: Present: normal lung sounds bilaterally. Absent: respiratory distress, chest wall tenderness - Cardiovascular Cardiovascular Exam: Present: regular rate, normal rhythm. Absent: systolic murmur, diastolic murmur, rubs, gallop - GI/Abdominal GI/Abdominal exam: Present: soft, normal bowel sounds. Absent: distended, tenderness - Rectal Rectal exam: Present: deferred - Extremities Exam Extremities exam: Present: normal inspection - Back Exam Back exam: Present: normal inspection - Neurological Exam Neurological exam: Present: alert, oriented X3, CN II-XII intact. Absent: motor sensory deficit - Psychiatric Psychiatric exam: Present: normal affect, normal mood - Skin Skin exam: Present: warm, dry, intact, normal color. Absent: rash ED Course Vital Signs 04/09/20 16:31 Temperature 97.3 F L Pulse Rate 121 H Respiratory 18 Rate Blood Pressure 103/73 O2 Sat by Pulse 97 Oximetry ED Medical Decision Making - Lab Data Result diagrams: 04/09/20 16:42 04/09/20 16:42 Lab Results 04/09/20 04/09/20 04/09/20 Range/Units 16:42 16:42 16:42 WBC 12.1 H (4.5-11.0) K/mm3 RBC 5.45 H (3.65-5.03) M/mm3 Hgb 16.1 H (11.8-15.2) gm/dl Hct 47.0 H (35.5-45.6) % MCV 86 (84-94) fl MCH 30 (28-32) pg MCHC 34 (32-34) % RDW 12.8 L (13.2-15.2) % Plt Count 396 (140-440) K/mm3 Lymph % (Auto) 23.7 (13.4-35.0) % Pine % (Auto) 6.1 (0.0-7.3) % Eos % (Auto) 1.4 (0.0-4.3) % Baso % (Auto) 0.7 (0.0-1.8) % Lymph # (Auto) 2.9 (1.2-5.4) K/mm3 Pine # (Auto) 0.7 (0.0-0.8) K/mm3 Eos # (Auto) 0.2 (0.0-0.4) K/mm3 Baso # (Auto) 0.1 (0.0-0.1) K/mm3 Seg Neutrophils % 68.1 (40.0-70.0) % Seg Neutrophils # 8.2 H (1.8-7.7) K/mm3 VBG pH 7.444 H (7.320-7.420) Sodium 138 (137-145) mmol/L Potassium 3.5 L (3.6-5.0) mmol/L Chloride 93.5 L (98-107) mmol/L Carbon Dioxide 34 H (22-30) mmol/L Anion Gap 14 mmol/L BUN 38 H (9-20) mg/dL Creatinine 1.2 (0.8-1.3) mg/dL Estimated GFR > 60 ml/min BUN/Creatinine Ratio 32 % Glucose 108 H (75-100) mg/dL POC Glucose (70-105) mg/dL Lactic Acid (0.7-2.0) mmol/L Calcium 11.0 H (8.4-10.2) mg/dL Total Bilirubin 0.30 (0.1-1.2) mg/dL AST 14 (5-40) units/L ALT 27 (7-56) units/L Alkaline Phosphatase 144 H (35-129) units/L Troponin T (0.00-0.029) ng/mL Total Protein 7.6 (6.3-8.2) g/dL Albumin 4.7 (3.9-5) g/dL Albumin/Globulin Ratio 1.6 % Urine Color (Yellow) Urine Turbidity (Clear) Urine pH (5.0-7.0) Ur Specific [place] (1.003-1.030) Urine Protein (Negative) mg/dL Urine Glucose (UA) (Negative) mg/dL Urine Ketones (Negative) mg/dL Urine Blood (Negative) Urine Nitrite (Negative) Urine Bilirubin (Negative) Urine Urobilinogen (<2.0) mg/dL Ur Leukocyte Esterase (Negative) Urine WBC (Auto) (0.0-6.0) /HPF Urine RBC (Auto) (0.0-6.0) /HPF U Epithel Cells (Auto) (0-13.0) /HPF Urine Bacteria (Auto) (Negative) /HPF Hyaline Casts /LPF Urine Mucus /HPF 04/09/20 04/09/20 04/09/20 Range/Units 16:53 16:58 17:35 WBC (4.5-11.0) K/mm3 RBC (3.65-5.03) M/mm3 Hgb (11.8-15.2) gm/dl Hct (35.5-45.6) % MCV (84-94) fl MCH (28-32) pg MCHC (32-34) % RDW (13.2-15.2) % Plt Count (140-440) K/mm3 Lymph % (Auto) (13.4-35.0) % Pine % (Auto) (0.0-7.3) % Eos % (Auto) (0.0-4.3) % Baso % (Auto) (0.0-1.8) % Lymph # (Auto) (1.2-5.4) K/mm3 Pine # (Auto) (0.0-0.8) K/mm3 Eos # (Auto) (0.0-0.4) K/mm3 Baso # (Auto) (0.0-0.1) K/mm3 Seg Neutrophils % (40.0-70.0) % Seg Neutrophils # (1.8-7.7) K/mm3 VBG pH (7.320-7.420) Sodium (137-145) mmol/L Potassium (3.6-5.0) mmol/L Chloride (98-107) mmol/L Carbon Dioxide (22-30) mmol/L Anion Gap mmol/L BUN (9-20) mg/dL Creatinine (0.8-1.3) mg/dL Estimated GFR ml/min BUN/Creatinine Ratio % Glucose (75-100) mg/dL POC Glucose 99 (70-105) mg/dL Lactic Acid 1.10 (0.7-2.0) mmol/L Calcium (8.4-10.2) mg/dL Total Bilirubin (0.1-1.2) mg/dL AST (5-40) units/L ALT (7-56) units/L Alkaline Phosphatase (35-129) units/L Troponin T (0.00-0.029) ng/mL Total Protein (6.3-8.2) g/dL Albumin (3.9-5) g/dL Albumin/Globulin Ratio % Urine Color Yellow (Yellow) Urine Turbidity Slightly-cloudy (Clear) Urine pH 5.0 (5.0-7.0) Ur Specific [place] 1.023 (1.003-1.030) Urine Protein 100 mg/dl (Negative) mg/dL Urine Glucose (UA) >=500 (Negative) mg/dL Urine Ketones Neg (Negative) mg/dL Urine Blood Neg (Negative) Urine Nitrite Neg (Negative) Urine Bilirubin Neg (Negative) Urine Urobilinogen 2.0 (<2.0) mg/dL Ur Leukocyte Esterase Neg (Negative) Urine WBC (Auto) 10.0 H (0.0-6.0) /HPF Urine RBC (Auto) 1.0 (0.0-6.0) /HPF U Epithel Cells (Auto) < 1.0 (0-13.0) /HPF Urine Bacteria (Auto) 1+ (Negative) /HPF Hyaline Casts 6 /LPF Urine Mucus 3+ /HPF 04/09/20 04/09/20 Range/Units 17:35 18:53 WBC (4.5-11.0) K/mm3 RBC (3.65-5.03) M/mm3 Hgb (11.8-15.2) gm/dl Hct (35.5-45.6) % MCV (84-94) fl MCH (28-32) pg MCHC (32-34) % RDW (13.2-15.2) % Plt Count (140-440) K/mm3 Lymph % (Auto) (13.4-35.0) % Pine % (Auto) (0.0-7.3) % Eos % (Auto) (0.0-4.3) % Baso % (Auto) (0.0-1.8) % Lymph # (Auto) (1.2-5.4) K/mm3 Pine # (Auto) (0.0-0.8) K/mm3 Eos # (Auto) (0.0-0.4) K/mm3 Baso # (Auto) (0.0-0.1) K/mm3 Seg Neutrophils % (40.0-70.0) % Seg Neutrophils # (1.8-7.7) K/mm3 VBG pH (7.320-7.420) Sodium (137-145) mmol/L Potassium (3.6-5.0) mmol/L Chloride (98-107) mmol/L Carbon Dioxide (22-30) mmol/L Anion Gap mmol/L BUN (9-20) mg/dL Creatinine (0.8-1.3) mg/dL Estimated GFR ml/min BUN/Creatinine Ratio % Glucose (75-100) mg/dL POC Glucose (70-105) mg/dL Lactic Acid (0.7-2.0) mmol/L Calcium (8.4-10.2) mg/dL Total Bilirubin (0.1-1.2) mg/dL AST (5-40) units/L ALT (7-56) units/L Alkaline Phosphatase (35-129) units/L Troponin T < 0.010 < 0.010 (0.00-0.029) ng/mL Total Protein (6.3-8.2) g/dL Albumin (3.9-5) g/dL Albumin/Globulin Ratio % Urine Color (Yellow) Urine Turbidity (Clear) Urine pH (5.0-7.0) Ur Specific [place] (1.003-1.030) Urine Protein (Negative) mg/dL Urine Glucose (UA) (Negative) mg/dL Urine Ketones (Negative) mg/dL Urine Blood (Negative) Urine Nitrite (Negative) Urine Bilirubin (Negative) Urine Urobilinogen (<2.0) mg/dL Ur Leukocyte Esterase (Negative) Urine WBC (Auto) (0.0-6.0) /HPF Urine RBC (Auto) (0.0-6.0) /HPF U Epithel Cells (Auto) (0-13.0) /HPF Urine Bacteria (Auto) (Negative) /HPF Hyaline Casts /LPF Urine Mucus /HPF - EKG Data -: EKG Interpreted by Ia EKG shows normal: sinus rhythm Rate: tachycardia - Radiology Data Radiology results: report reviewed - Medical Decision Making Discussed results with patient Patient received IV fluids Patient will be discharged home on antibiotics. Critical care attestation.: If time is entered above; I have spent that time in minutes in the direct care of this critically ill patient, excluding procedure time. ED Disposition Clinical Impression: Hyperglycemia, UTI (urinary tract infection) Disposition: DC-01 TO HOME OR SELFCARE Is pt being admited?: No Does the pt Need Aspirin: No Condition: Stable Additional Instructions: return if worse Referrals: PRIMARY CARE, [Primary Care Provider] - 3-5 Days [facility] [place] [Outside] - 3-5 Days [facility] [Provider Group] - 3-5 Days [facility] [Provider Group] - 3-5 Days Time of Disposition: 20:17
[2020-04-09 17:42] LABS: Alanine Aminotransferase 27 units/L (7-56); Albumin 4.7 g/dL (3.9-5); BUN/Creatinine Ratio 32; Blood Urea Nitrogen 38 mg/dL (9-20); Hemolysis Index 41
--- NOTE | 2020-04-09 18:19 | XRay Report ---
CHEST 1 VIEW 5:46 PM INDICATION / CLINICAL INFORMATION: Chest pain. COMPARISON: 02/23/2012. FINDINGS: SUPPORT DEVICES: None. HEART / MEDIASTINUM: The heart size and pulmonary vasculature are normal. The aorta is normal in kin radha. LUNGS / PLEURA: No significant pulmonary or pleural abnormality. No pneumothorax. ADDITIONAL FINDINGS: There is a subacute or chronic appearing fracture of the right first rib postero laterally, new since a neck radiograph from 04/19/2019. There is incomplete osseous union. IMPRESSION: 1. No acute pulmonary disease. 2. Fracture of the right first rib appears subacute or chronic, but is new since 04/19/2019. Signer Name: Abe Roque MD Signed: 04/09/2020 6:14 PM Workstation Name: [id number]
[2020-04-09 20:38] VITALS: BP 98/58
== END 2020-04-09 20:45 | disposition home or self-care (01) ==
LOC: ED 16:20
DX: E11.65 Type 2 diabetes mellitus with hyperglycemia (principal); N39.0 Urinary tract infection, site not specified
CPT/HCPCS: 36415; 71045; 80053; 81001; 82140; 82805; 82962; 84484; 85025; 87086; 93005; 96361; 96374; 99284; J2405; J7030

== ENCOUNTER 2020-08-10 10:57 | Inpatient (IN) | payer SELFPAY ==
[2020-08-10] MEDS ORDERED: SODIUM CHLORIDE 0.9% 1000 ML 1,000 ML IV ONE ×3 (11:22→15:12)
--- NOTE | 2020-08-10 11:22 | Event Note ---
ED Screening Note ED Screening Note: Patient presents with nausea and vomiting that began 2 hours prior to arrival He states he checked his sugar and it was 400 He states that his vomit appeared red in color but he reports that he did not have anything red to drink He denies any diarrhea, hematochezia, melena, abdominal pain He has a past medical history of diabetes He states he was last in DKA 2 years ago BG check in triage 474 This initial assessment/diagnostic orders/clinical plan/treatment(s) is/are subject to change based on patients health status, clinical progression and re- assessment by fellow clinical providers in the ED. Further treatment and workup at subsequent clinical providers discretion. Patient/guardian urged not to elope from the ED as their condition may be serious if not clinically assessed and managed. Initial orders include: labs, UA
[2020-08-10 11:57] LABS: Basophils # (Auto) 0.1 K/mm3 (0.0-0.1); Eosinophils # (Auto) 0.3 K/mm3 (0.0-0.4); Eosinophils % (Auto) 3.3 % (0.0-4.3); Hematocrit 45.8 % (35.5-45.6); Lymphocytes % (Auto) 23.9 % (13.4-35.0); Mean Corpuscular HGB Conc 35 % (32-34); Mean Corpuscular Volume 88 fl (84-94); Monocytes # (Auto) 0.5 K/mm3 (0.0-0.8); Monocytes % (Auto) 5.6 % (0.0-7.3); Platelet Count 326 K/mm3 (140-440); Red Blood Count 5.23 M/mm3 (3.65-5.03); Red Cell Distribution Width 12.6 % (13.2-15.2)
[2020-08-10 12:07] LABS: INR 0.86 (0.87-1.13)
[2020-08-10 12:16] LABS: Alanine Aminotransferase 21 units/L (7-56); Albumin 4.5 g/dL (3.9-5); BUN/Creatinine Ratio 31; Blood Urea Nitrogen 28 mg/dL (9-20); Calcium 10.4 mg/dL (8.4-10.2); Hemolysis Index 3
[2020-08-10] MEDS ORDERED: PANTOPRAZOLE 40 MG INJ IV ONE ×2 (13:07→13:29)
[2020-08-10] MEDS ORDERED: ONDANSETRON 4 MG/2 ML INJ IV ONE (13:28)
[2020-08-10] MEDS ORDERED: MORPHINE 4 MG/1 ML INJ IV ONE (13:28)
--- NOTE | 2020-08-10 13:53 | XRay Report ---
CHEST 1 VIEW 08/10/2020 12:43 PM INDICATION / CLINICAL INFORMATION: Hematemesis. COMPARISON: April 09, 2020 FINDINGS: SUPPORT DEVICES: None. HEART / MEDIASTINUM: No significant abnormality. LUNGS / PLEURA: No significant pulmonary or pleural abnormality. No pneumothorax. ADDITIONAL FINDINGS: No significant additional findings. IMPRESSION: 1. No acute findings. Signer Name: Tomas Santo MD Signed: 08/10/2020 1:48 PM Workstation Name: [id number]
[2020-08-10 14:05] LABS: Bilirubin,Urine NEG (Negative); Blood,Urine NEG (Negative); Color,Urine Yellow (Yellow); Hyaline Casts,Urine 1 /LPF; Mucus,Urine FEW /HPF; Protein,Urine <15 mg/dL mg/dL (Negative); Urobilinogen,Urine < 2.0 mg/dL (<2.0)
--- NOTE | 2020-08-10 14:29 | Cat Scan Report ---
CT ABDOMEN AND PELVIS WITH CONTRAST HISTORY: MAIN COMPARISON: 04/19/2019 TECHNIQUE: Axial CT images were obtained through the abdomen and pelvis after 100 cc of IV contrast. Sagittal and coronal reformatted images. All CT scans at this location are performed using CT dose re duction for ALARA by means of automated exposure control. FINDINGS: CT ABDOMEN: Lung Bases: Clear. Liver: No significant abnormality. Biliary: No significant abnormality. Spleen: No significant abnormality. Unenlarged. Pancreas: No significant abnormality. Adrenals: No significant abnormality. Kidneys: No significant abnormality. Few subcentimeter simple appearing cysts are noted bilaterally. Lymphatics: No lymphadenopathy. Vasculature: No significant abnormality. Bowel/Peritoneum: No significant abnormality. No free air. No free fluid. Normal appendix. CT PELVIS: : No significant abnormality. Osseous Structures: No significant abnormality. Additional Findings: None IMPRESSION: No significant abnormality. Signer Name: John Benites Jr, MD Signed: 08/10/2020 2:25 PM Workstation Name: [id number]
[2020-08-10] MEDS ORDERED: INSULIN REGULAR, HUMAN 100 UNITS/1 ML IV ONE (14:45)
--- NOTE | 2020-08-10 15:12 | Emergency Department Report ---
ED General Adult HPI - General Chief complaint: Abdominal Pain Stated complaint: VOMITING BLOOD/HIGH GLUCOSE Time Seen by Provider: 08/10/20 11:21 Source: patient Mode of arrival: Ambulatory Limitations: No Limitations - History of Present Illness Initial comments: The patient presents to the emergency department with a chief complaint of of abdominal pain with nausea and vomiting that started 3 hours ago. Patient states that he is thrown up more than 5 times in the last 3 hours. Patient states the last 2 episodes of vomiting had bright red blood present. Patient states that now he has a burning sensation in his chest due to the amount of vomiting that has been present. Patient denies headache or shortness of breath. Patient states prior to his arrival to emergency department he checked his glucose level at home and was greater than 300. Upon arrival the patient's glucose was 474. -: Sudden Location: abdomen Radiation: non-radiation Severity scale (0 -10): 8 Quality: burning Consistency: constant Improves with: none Worsens with: none Associated Symptoms: denies other symptoms Treatments Prior to Arrival: none - Related Data Previous Rx's Medication Instructions Recorded Last Taken Type Hydrocort/Pramoxine [Proctofoam-Hc] 1 applicatio [place] BID #1 can 04/12/19 Unknown Rx Lidocaine [Lidocaine Cream] 30 gm TP PRN PRN #1 tube 04/12/19 Unknown Rx Insulin NPH Hum/Reg Insulin Hm 20 unit SQ BIDAC #2 vial 04/21/19 Unknown Rx [Novolin 70-30 100 Unit/ml Vial] Insulin Regular, Human [Novolin R] See Protocol SQ Q24H #1 vial 04/21/19 Unknown Rx Pantoprazole [Protonix TAB] 40 mg PO DAILY #30 tablet 04/21/19 Unknown Rx Ibuprofen [Motrin] 800 mg PO Q8HR PRN #30 tablet 04/09/20 Unknown Rx cephALEXin [Keflex] 500 mg PO BID #14 capsule 04/09/20 Unknown Rx Allergies Allergy/AdvReac Type Severity Reaction Status Date / Time No Known Allergies Allergy Verified 04/09/20 16:28 ED Review of Systems ROS: Stated complaint: VOMITING BLOOD/HIGH GLUCOSE Other details as noted in HPI Comment: All other systems reviewed and negative Constitutional: denies: chills, fever Eyes: denies: eye pain, eye discharge, vision change ENT: denies: ear pain, throat pain Respiratory: denies: cough, shortness of breath, wheezing Cardiovascular: denies: chest pain, palpitations Endocrine: no symptoms reported Gastrointestinal: abdominal pain, nausea, vomiting. denies: diarrhea Genitourinary: denies: urgency, dysuria Musculoskeletal: denies: back pain, joint swelling, arthralgia Skin: denies: rash, lesions Neurological: denies: headache, weakness, paresthesias Psychiatric: denies: anxiety, depression Hematological/Lymphatic: denies: easy bleeding, easy bruising ED Past Medical Hx - Past Medical History Previous Medical History?: Yes Hx Diabetes: Yes Hx Seizures: Yes Additional medical history: being tested for pancreatic cancer - Surgical History Past Surgical History?: Yes Additional Surgical History: Left eye - Social History Smoking Status: Never Smoker Substance Use Type: None - Medications Home Medications: Home Medications Medication Instructions Recorded Confirmed Last Taken Type Hydrocort/Pramoxine [Proctofoam-Hc] 1 applicatio [place] BID #1 can 04/12/19 04/20/19 Unknown Rx Lidocaine [Lidocaine Cream] 30 gm TP PRN PRN #1 tube 04/12/19 04/20/19 Unknown Rx Insulin NPH Hum/Reg Insulin Hm 20 unit SQ BIDAC #2 vial 04/21/19 Unknown Rx [Novolin 70-30 100 Unit/ml Vial] Insulin Regular, Human [Novolin R] See Protocol SQ Q24H #1 vial 04/21/19 Unknown Rx Pantoprazole [Protonix TAB] 40 mg PO DAILY #30 tablet 04/21/19 Unknown Rx Ibuprofen [Motrin] 800 mg PO Q8HR PRN #30 tablet 04/09/20 Unknown Rx cephALEXin [Keflex] 500 mg PO BID #14 capsule 04/09/20 Unknown Rx ED Physical Exam - General Limitations: No Limitations General appearance: alert, in no apparent distress - Head Head exam: Present: atraumatic, normocephalic - Eye Eye exam: Present: normal appearance - ENT ENT exam: Present: mucous membranes dry - Neck Neck exam: Present: normal inspection - Respiratory Respiratory exam: Present: normal lung sounds bilaterally. Absent: respiratory distress - Cardiovascular Cardiovascular Exam: Present: normal rhythm, tachycardia. Absent: systolic murmur, diastolic murmur, rubs, gallop - GI/Abdominal GI/Abdominal exam: Present: soft, tenderness (Mild tenderness to palpation diffusely), normal bowel sounds. Absent: distended - Rectal Rectal exam: Present: deferred - Extremities Exam Extremities exam: Present: normal inspection - Back Exam Back exam: Present: normal inspection - Neurological Exam Neurological exam: Present: alert, oriented X3, CN II-XII intact. Absent: motor sensory deficit - Psychiatric Psychiatric exam: Present: normal affect, normal mood - Skin Skin exam: Present: warm, dry, intact, normal color. Absent: rash ED Course Vital Signs 08/10/20 08/10/20 08/10/20 11:21 13:35 13:51 Temperature 98.0 F Pulse Rate 120 H 109 H Respiratory 18 18 20 Rate Blood Pressure 122/89 [Right] O2 Sat by Pulse 98 100 Oximetry 08/10/20 08/10/20 08/10/20 14:19 15:01 15:48 Temperature Pulse Rate 102 H 107 H Respiratory 14 15 20 Rate Blood Pressure [Right] O2 Sat by Pulse 91 97 Oximetry ED Medical Decision Making - Lab Data Result diagrams: 08/10/20 11:37 08/10/20 11:37 Lab Results 08/10/20 08/10/20 08/10/20 Range/Units 11:21 11:37 11:37 WBC 8.3 (4.5-11.0) K/mm3 RBC 5.23 H (3.65-5.03) M/mm3 Hgb 16.0 H (11.8-15.2) gm/dl Hct 45.8 H (35.5-45.6) % MCV 88 (84-94) fl MCH 31 (28-32) pg MCHC 35 H (32-34) % RDW 12.6 L (13.2-15.2) % Plt Count 326 (140-440) K/mm3 Lymph % (Auto) 23.9 (13.4-35.0) % Lane % (Auto) 5.6 (0.0-7.3) % Eos % (Auto) 3.3 (0.0-4.3) % Baso % (Auto) 1.0 (0.0-1.8) % Lymph # (Auto) 2.0 (1.2-5.4) K/mm3 Lane # (Auto) 0.5 (0.0-0.8) K/mm3 Eos # (Auto) 0.3 (0.0-0.4) K/mm3 Baso # (Auto) 0.1 (0.0-0.1) K/mm3 Seg Neutrophils % 66.2 (40.0-70.0) % Seg Neutrophils # 5.5 (1.8-7.7) K/mm3 PT 11.5 L (12.2-14.9) Sec. INR 0.86 L (0.87-1.13) APTT 23.0 L (24.2-36.6) Sec. VBG pH (7.320-7.420) Sodium (137-145) mmol/L Potassium (3.6-5.0) mmol/L Chloride (98-107) mmol/L Carbon Dioxide (22-30) mmol/L Anion Gap mmol/L BUN (9-20) mg/dL Creatinine (0.8-1.3) mg/dL Estimated GFR ml/min BUN/Creatinine Ratio % Glucose (75-100) mg/dL POC Glucose 474 H (70-105) mg/dL Calcium (8.4-10.2) mg/dL Total Bilirubin (0.1-1.2) mg/dL AST (5-40) units/L ALT (7-56) units/L Alkaline Phosphatase (35-129) units/L Total Protein (6.3-8.2) g/dL Albumin (3.9-5) g/dL Albumin/Globulin Ratio % Urine Color (Yellow) Urine Turbidity (Clear) Urine pH (5.0-7.0) Ur Specific [place] (1.003-1.030) Urine Protein (Negative) mg/dL Urine Glucose (UA) (Negative) mg/dL Urine Ketones (Negative) mg/dL Urine Blood (Negative) Urine Nitrite (Negative) Urine Bilirubin (Negative) Urine Urobilinogen (<2.0) mg/dL Ur Leukocyte Esterase (Negative) Urine WBC (Auto) (0.0-6.0) /HPF Urine RBC (Auto) (0.0-6.0) /HPF Hyaline Casts /LPF Urine Mucus /HPF 08/10/20 08/10/20 08/10/20 Range/Units 11:37 11:37 13:24 WBC (4.5-11.0) K/mm3 RBC (3.65-5.03) M/mm3 Hgb (11.8-15.2) gm/dl Hct (35.5-45.6) % MCV (84-94) fl MCH (28-32) pg MCHC (32-34) % RDW (13.2-15.2) % Plt Count (140-440) K/mm3 Lymph % (Auto) (13.4-35.0) % Lane % (Auto) (0.0-7.3) % Eos % (Auto) (0.0-4.3) % Baso % (Auto) (0.0-1.8) % Lymph # (Auto) (1.2-5.4) K/mm3 Lane # (Auto) (0.0-0.8) K/mm3 Eos # (Auto) (0.0-0.4) K/mm3 Baso # (Auto) (0.0-0.1) K/mm3 Seg Neutrophils % (40.0-70.0) % Seg Neutrophils # (1.8-7.7) K/mm3 PT (12.2-14.9) Sec. INR (0.87-1.13) APTT (24.2-36.6) Sec. VBG pH 7.338 (7.320-7.420) Sodium 133 L (137-145) mmol/L Potassium 4.3 (3.6-5.0) mmol/L Chloride 92.7 L (98-107) mmol/L Carbon Dioxide 31 H (22-30) mmol/L Anion Gap 14 mmol/L BUN 28 H (9-20) mg/dL Creatinine 0.9 (0.8-1.3) mg/dL Estimated GFR > 60 ml/min BUN/Creatinine Ratio 31 % Glucose 450 H (75-100) mg/dL POC Glucose 317 H (70-105) mg/dL Calcium 10.4 H (8.4-10.2) mg/dL Total Bilirubin 0.30 (0.1-1.2) mg/dL AST 11 (5-40) units/L ALT 21 (7-56) units/L Alkaline Phosphatase 134 H (35-129) units/L Total Protein 7.4 (6.3-8.2) g/dL Albumin 4.5 (3.9-5) g/dL Albumin/Globulin Ratio 1.6 % Urine Color (Yellow) Urine Turbidity (Clear) Urine pH (5.0-7.0) Ur Specific [place] (1.003-1.030) Urine Protein (Negative) mg/dL Urine Glucose (UA) (Negative) mg/dL Urine Ketones (Negative) mg/dL Urine Blood (Negative) Urine Nitrite (Negative) Urine Bilirubin (Negative) Urine Urobilinogen (<2.0) mg/dL Ur Leukocyte Esterase (Negative) Urine WBC (Auto) (0.0-6.0) /HPF Urine RBC (Auto) (0.0-6.0) /HPF Hyaline Casts /LPF Urine Mucus /HPF 08/10/20 08/10/20 Range/Units 13:44 15:32 WBC (4.5-11.0) K/mm3 RBC (3.65-5.03) M/mm3 Hgb (11.8-15.2) gm/dl Hct (35.5-45.6) % MCV (84-94) fl MCH (28-32) pg MCHC (32-34) % RDW (13.2-15.2) % Plt Count (140-440) K/mm3 Lymph % (Auto) (13.4-35.0) % Lane % (Auto) (0.0-7.3) % Eos % (Auto) (0.0-4.3) % Baso % (Auto) (0.0-1.8) % Lymph # (Auto) (1.2-5.4) K/mm3 Lane # (Auto) (0.0-0.8) K/mm3 Eos # (Auto) (0.0-0.4) K/mm3 Baso # (Auto) (0.0-0.1) K/mm3 Seg Neutrophils % (40.0-70.0) % Seg Neutrophils # (1.8-7.7) K/mm3 PT (12.2-14.9) Sec. INR (0.87-1.13) APTT (24.2-36.6) Sec. VBG pH (7.320-7.420) Sodium (137-145) mmol/L Potassium (3.6-5.0) mmol/L Chloride (98-107) mmol/L Carbon Dioxide (22-30) mmol/L Anion Gap mmol/L BUN (9-20) mg/dL Creatinine (0.8-1.3) mg/dL Estimated GFR ml/min BUN/Creatinine Ratio % Glucose (75-100) mg/dL POC Glucose 240 H (70-105) mg/dL Calcium (8.4-10.2) mg/dL Total Bilirubin (0.1-1.2) mg/dL AST (5-40) units/L ALT (7-56) units/L Alkaline Phosphatase (35-129) units/L Total Protein (6.3-8.2) g/dL Albumin (3.9-5) g/dL Albumin/Globulin Ratio % Urine Color Yellow (Yellow) Urine Turbidity Clear (Clear) Urine pH 5.0 (5.0-7.0) Ur Specific [place] 1.037 H (1.003-1.030) Urine Protein <15 mg/dl (Negative) mg/dL Urine Glucose (UA) >=500 (Negative) mg/dL Urine Ketones Tr (Negative) mg/dL Urine Blood Neg (Negative) Urine Nitrite Neg (Negative) Urine Bilirubin Neg (Negative) Urine Urobilinogen < 2.0 (<2.0) mg/dL Ur Leukocyte Esterase Neg (Negative) Urine WBC (Auto) 1.0 (0.0-6.0) /HPF Urine RBC (Auto) 1.0 (0.0-6.0) /HPF Hyaline Casts 1 /LPF Urine Mucus Few /HPF - Radiology Data Radiology results: report reviewed - Medical Decision Making The patient was placed on a Protonix drip and given a Protonix bolus IV insulin given IV fluids given Critical Care Time: Yes Critical care time in (mins) excluding proc time.: 35 Critical care attestation.: If time is entered above; I have spent that time in minutes in the direct care of this critically ill patient, excluding procedure time. ED Disposition Clinical Impression: Hematemesis, Hyperglycemia Disposition: DC-09 OP ADMIT IP TO THIS HOSP Is pt being admited?: Yes Does the pt Need Aspirin: No Condition: Fair Referrals: PRIMARY CARE,MD [Primary Care Provider] - 3-5 Days
[2020-08-10] MEDS: PANTOPRAZOLE 80 MG in SODIUM CHLORIDE 0.9% 100 ML IV SCH (16:12)
[2020-08-10] MEDS ORDERED: ONDANSETRON 4 MG/2 ML INJ IV PRN (16:45)
[2020-08-10] MEDS ORDERED: ACETAMINOPHEN 325 MG TAB PO PRN (16:45)
--- NOTE | 2020-08-10 16:45 | History and Physical Report ---
History of Present Illness Date of admission: 08/10/20 16:02 Chief complaint: I was throwing up blood History of present illness: 40 YO Male with DM, Seizure Disorder, Marva White Tear, Medication Noncompliance presents to ED for evaluation. Patient reports "I was throwing up some blood". Patient states that he has experienced nausea, multiple episodes of vomiting over the past 1 day with worsening symptoms over the past 3 hours. Patient also reports abdominal pain. Pain is 8/10, constant, burning in nature, nonradiating, without exacerbating or alleviating factors. Patient states that he experienced 2 episodes of blood in his vomitus. Patient transported to [facility] via private vehicle for further care and evaluation of the aforementioned symptoms. The patient was seen and evaluated in the emergency department. All lab and imaging studies reviewed. Patient found to have symptoms consistent with Marva-Whiet tear, as well as upper GI bleed. Patient placed in observation status and admitted to medical floor and treated with PPI therapy with improvement in symptoms. Patient denies fever, chills, chest pain, palpitation, productive cough, skin rash, recent ill contacts, or known exposure to COVID-19. Prior admission on 04/19/2019 reviewed. All medication listed at time of admission has been reconciled. Past History Past Medical History: diabetes, seizures Past Surgical History: Other (Left eye surgery) Social history: , lives with family. denies: smoking, alcohol abuse, prescription drug abuse Family history: hypertension Medications and Allergies Allergies Allergy/AdvReac Type Severity Reaction Status Date / Time No Known Allergies Allergy Verified 04/09/20 16:28 Home Medications Medication Instructions Recorded Confirmed Last Taken Type Hydrocort/Pramoxine [Proctofoam-Hc] 1 applicatio [place] BID #1 can 04/12/19 04/20/19 Unknown Rx Lidocaine [Lidocaine Cream] 30 gm TP PRN PRN #1 tube 04/12/19 04/20/19 Unknown Rx Insulin NPH Hum/Reg Insulin Hm 20 unit SQ BIDAC #2 vial 04/21/19 Unknown Rx [Novolin 70-30 100 Unit/ml Vial] Insulin Regular, Human [Novolin R] See Protocol SQ Q24H #1 vial 04/21/19 Unknown Rx Pantoprazole [Protonix TAB] 40 mg PO DAILY #30 tablet 04/21/19 Unknown Rx Ibuprofen [Motrin] 800 mg PO Q8HR PRN #30 tablet 04/09/20 Unknown Rx cephALEXin [Keflex] 500 mg PO BID #14 capsule 04/09/20 Unknown Rx Active Meds: Active Medications Pantoprazole Sodium 80 mg/ (Sodium Chloride) 100 mls @ 10 mls/hr IV DIRECT MERON Last Admin: 08/10/20 16:12 Dose: 8 mg/hr, 10 mls/hr Documented by: Review of Systems Constitutional: no weight loss, no weight gain, no fever, no chills Ears, nose, mouth and throat: no ear pain, no ear discharge, no tinnitis, no decreased hearing Cardiovascular: no chest pain, no orthopnea, no rapid/irregular heart beat, no edema, no syncope Respiratory: no cough, no cough with sputum, no excessive sputum, no hemoptysis Gastrointestinal: abdominal pain, nausea, vomiting, no diarrhea, no constipation, no change in bowel habits, no hematemesis, no BRBPR, no melena, no hematochezia, no heartburn Genitourinary Male: no dysuria, no hematuria, no flank pain, no discharge, no urinary frequency, no urinary hesitancy Rectal: no pain, no incontinence, no bleeding Musculoskeletal: no shooting arm pain, no arm numbness/tingling, no low back pain, no shooting leg pain, no redness of joints Integumentary: no rash, no pruritis, no redness, no sores, no wounds, no jaundice Neurological: no head injury, no transient paralysis, no paralysis, no weakness, no numbness, no tingling, no seizures, no syncope Psychiatric: no anxiety, no memory loss, no sleep disturbances, no hypersomnia, no change in appetite, no change in libido, no suicidal ideation Endocrine: no cold intolerance, no excessive thirst, no polydipsia, no polyuria, no excessive sweating, no flushing Hematologic/Lymphatic: no easy bruising, no easy bleeding, no lymphadenopathy Allergic/Immunologic: no urticaria, no allergic rhinitis, no wheezing, no persistent infections, no anaphylaxis Exam - Constitutional Vitals: Temp Pulse Resp BP Pulse Ox 98.0 F 107 H 20 122/89 97 08/10/20 11:21 08/10/20 15:01 08/10/20 15:48 08/10/20 11:08/10/20 15:01 General appearance: Present: mild distress - EENT Eyes: Present: PERRL ENT: hearing intact, clear oral mucosa - Neck Neck: Present: supple, normal ROM - Respiratory Respiratory effort: normal Respiratory: bilateral: CTA - Cardiovascular Heart Sounds: Present: S1 & S2. Absent: rub, click - Extremities Extremities: pulses symmetrical, No edema Peripheral Pulses: within normal limits - Abdominal General gastrointestinal: Present: soft, non-tender, non-distended, normal bowel sounds Male genitourinary: Present: normal - Integumentary Integumentary: Present: clear, warm, dry - Musculoskeletal Musculoskeletal: gait normal, strength equal bilaterally - Psychiatric Psychiatric: appropriate mood/affect, intact judgment & insight - Neurologic Neurologic: CNII-XII intact, moves all extremities HEART Score - HEART Score Troponin: Troponin T < 0.010 ng/mL (0.00-0.029) 08/10/20 15:51 Results - Labs CBC & Chem 7: 08/10/20 11:37 08/10/20 11:37 Labs: Abnormal lab results 08/10/20 08/10/20 08/10/20 Range/Units 11:21 11:37 11:37 RBC 5.23 H (3.65-5.03) M/mm3 Hgb 16.0 H (11.8-15.2) gm/dl Hct 45.8 H (35.5-45.6) % MCHC 35 H (32-34) % RDW 12.6 L (13.2-15.2) % PT 11.5 L (12.2-14.9) Sec. INR 0.86 L (0.87-1.13) APTT 23.0 L (24.2-36.6) Sec. Sodium (137-145) mmol/L Chloride (98-107) mmol/L Carbon Dioxide (22-30) mmol/L BUN (9-20) mg/dL Glucose (75-100) mg/dL POC Glucose 474 H (70-105) mg/dL Calcium (8.4-10.2) mg/dL Alkaline Phosphatase (35-129) units/L Ur Specific [place] (1.003-1.030) 08/10/20 08/10/20 08/10/20 Range/Units 11:37 13:24 13:44 RBC (3.65-5.03) M/mm3 Hgb (11.8-15.2) gm/dl Hct (35.5-45.6) % MCHC (32-34) % RDW (13.2-15.2) % PT (12.2-14.9) Sec. INR (0.87-1.13) APTT (24.2-36.6) Sec. Sodium 133 L (137-145) mmol/L Chloride 92.7 L (98-107) mmol/L Carbon Dioxide 31 H (22-30) mmol/L BUN 28 H (9-20) mg/dL Glucose 450 H (75-100) mg/dL POC Glucose 317 H (70-105) mg/dL Calcium 10.4 H (8.4-10.2) mg/dL Alkaline Phosphatase 134 H (35-129) units/L Ur Specific [place] 1.037 H (1.003-1.030) 08/10/20 Range/Units 15:32 RBC (3.65-5.03) M/mm3 Hgb (11.8-15.2) gm/dl Hct (35.5-45.6) % MCHC (32-34) % RDW (13.2-15.2) % PT (12.2-14.9) Sec. INR (0.87-1.13) APTT (24.2-36.6) Sec. Sodium (137-145) mmol/L Chloride (98-107) mmol/L Carbon Dioxide (22-30) mmol/L BUN (9-20) mg/dL Glucose (75-100) mg/dL POC Glucose 240 H (70-105) mg/dL Calcium (8.4-10.2) mg/dL Alkaline Phosphatase (35-129) units/L Ur Specific [place] (1.003-1.030) Assessment and Plan - Patient Problems (1) Marva-White tear Current Visit: Yes Status: Acute Plan to address problem: CT scan abdomen and pelvis, IV PPI therapy, supportive care, bowel rest, IV fluid resuscitation therapy, Carafate therapy before meals and at bedtime. Clear liquids, advance as tolerated in a.m. (2) Hematemesis Current Visit: Yes Status: Acute Qualifiers: Nausea presence: with nausea Qualified Code(s): K92.0 - Hematemesis Plan to address problem: Supportive care, continue medical management. (3) Gastritis Current Visit: No Status: Acute Qualifiers: Gastritis type: unspecified gastritis Chronicity: acute Gastritis bleeding: with bleeding Qualified Code(s): K29.01 - Acute gastritis with bleeding Plan to address problem: Supportive care, Carafate therapy, bowel rest, IV fluid resuscitation therapy. (4) Diabetes Current Visit: Yes Status: Acute Plan to address problem: [facility] health counseling, Accu-Chek, hypoglycemia protocol, consistent carbohydrate diet when patient is able to tolerate oral diet (5) DVT prophylaxis Current Visit: Yes Status: Acute Plan to address problem: SCD to bilateral lower extremities while in bed, patient is ambulatory.
[2020-08-10] MEDS: SODIUM CHLORIDE 0.9% 1000 ML 1,000 ML IV SCH ×2 (17:24→20:59)
[2020-08-10] MEDS: SUCRALFATE 1 GM/10 ML ORAL LIQD PO SCH (21:01)
[2020-08-11] MEDS: PANTOPRAZOLE 80 MG in SODIUM CHLORIDE 0.9% 100 ML IV SCH (03:44)
[2020-08-11] MEDS: SODIUM CHLORIDE 0.9% 1000 ML 1,000 ML IV SCH ×2 (05:23→15:42)
[2020-08-11 06:27] LABS: Basophils # (Auto) 0.1 K/mm3 (0.0-0.1); Basophils % (Auto) 1.2 % (0.0-1.8); Eosinophils # (Auto) 0.4 K/mm3 (0.0-0.4); Eosinophils % (Auto) 6.8 % (0.0-4.3); Hematocrit 37.3 % (35.5-45.6); Hemoglobin 12.9 gm/dl (11.8-15.2); Lymphocytes # (Auto) 2.4 K/mm3 (1.2-5.4); Lymphocytes % (Auto) 38.2 % (13.4-35.0); Mean Corpuscular HGB Conc 35 % (32-34); Mean Corpuscular Volume 88 fl (84-94); Monocytes # (Auto) 0.4 K/mm3 (0.0-0.8); Monocytes % (Auto) 6.3 % (0.0-7.3); Platelet Count 242 K/mm3 (140-440); Red Blood Count 4.23 M/mm3 (3.65-5.03); Red Cell Distribution Width 12.5 % (13.2-15.2)
[2020-08-11] MEDS: SUCRALFATE 1 GM/10 ML ORAL LIQD PO SCH ×4 (07:30→22:13)
--- NOTE | 2020-08-11 10:57 | Progress Note ---
Assessment and Plan Assessment and plan: --Hematemesis; With significant drop in hemoglobin from 16-13 IV Protonix, GI consult Closely monitor H&H, transfuse as needed Possible endoscopy, n.p.o. status --Acute gastritis; IV Protonix, GI consult Possible EGD tomorrow Avoid NSAIDs and aspirin --Type 2 diabetes mellitus; Accu-Chek, sliding scale coverage, ADA diet Patient is n.p.o. for EGD tomorrow Check A1c if needed --Morbid obesity; BMI 49.9 Patient needs weight reduction when medically stable --Ongoing tobacco use; Smoking cessation counseling, nicotine patch as needed --DVT prophylaxis; SCDs No pharmacologic anticoagulation in view of severe GI bleeding. Discussed patient's condition tests and reports and treatment plan In detail, answered his questions, verbalized understanding Closely monitor the patient and adjust management as needed Plan of care, patient status discussed with case management History Interval history: I have seen and examined the patient at the bedside Patient's chart and medications reviewed Patient was admitted with hematemesis Mild drop in Hb from 16 -12.9 within 24 hours No active bleeding Vital signs noted Hospitalist Physical - Constitutional Vitals: Temp Pulse Resp BP Pulse Ox 97.7 F 93 H 20 123/79 97 08/11/20 04:42 08/11/20 04:42 08/11/20 04:42 08/11/20 04:42 08/11/20 04:42 General appearance: Present: mild distress, well-nourished, obese - EENT Eyes: Present: PERRL, EOM intact - Neck Neck: Present: supple, normal ROM - Respiratory Respiratory effort: normal Respiratory: bilateral: diminished, negative: rales, rhonchi, wheezing - Cardiovascular Rhythm: regular Heart Sounds: Present: S1 & S2 - Extremities Extremities: no ischemia, No edema - Abdominal General gastrointestinal: soft, non-tender, non-distended, normal bowel sounds - Integumentary Integumentary: Present: clear, warm - Psychiatric Psychiatric: appropriate mood/affect, cooperative - Neurologic Neurologic: moves all extremities HEART Score - HEART Score Troponin: Troponin T < 0.010 ng/mL (0.00-0.029) 08/10/20 15:51 Results - Labs CBC & Chem 7: 08/11/20 05:42 08/10/20 11:37 Labs: Laboratory Last Values WBC 6.2 K/mm3 (4.5-11.0) 08/11/20 05:42 RBC 4.23 M/mm3 (3.65-5.03) 08/11/20 05:42 Hgb 12.9 gm/dl (11.8-15.2) D 08/11/20 05:42 Hct 37.3 % (35.5-45.6) D 08/11/20 05:42 MCV 88 fl (84-94) 08/11/20 05:42 MCH 30 pg (28-32) 08/11/20 05:42 MCHC 35 % (32-34) H 08/11/20 05:42 RDW 12.5 % (13.2-15.2) L 08/11/20 05:42 Plt Count 242 K/mm3 (140-440) 08/11/20 05:42 Lymph % (Auto) 38.2 % (13.4-35.0) H 08/11/20 05:42 [place] % (Auto) 6.3 % (0.0-7.3) 08/11/20 05:42 Eos % (Auto) 6.8 % (0.0-4.3) H 08/11/20 05:42 Baso % (Auto) 1.2 % (0.0-1.8) 08/11/20 05:42 Lymph # (Auto) 2.4 K/mm3 (1.2-5.4) 08/11/20 05:42 [place] # (Auto) 0.4 K/mm3 (0.0-0.8) 08/11/20 05:42 Eos # (Auto) 0.4 K/mm3 (0.0-0.4) 08/11/20 05:42 Baso # (Auto) 0.1 K/mm3 (0.0-0.1) 08/11/20 05:42 Seg Neutrophils % 47.5 % (40.0-70.0) 08/11/20 05:42 Seg Neutrophils # 2.9 K/mm3 (1.8-7.7) 08/11/20 05:42 PT 11.5 Sec. (12.2-14.9) L 08/10/20 11:37 INR 0.86 (0.87-1.13) L 08/10/20 11:37 APTT 23.0 Sec. (24.2-36.6) L 08/10/20 11:37 VBG pH 7.338 (7.320-7.420) 08/10/20 11:37 Sodium 133 mmol/L (137-145) L 08/10/20 11:37 Potassium 4.3 mmol/L (3.6-5.0) 08/10/20 11:37 Chloride 92.7 mmol/L (98-107) L 08/10/20 11:37 Carbon Dioxide 31 mmol/L (22-30) H 08/10/20 11:37 Anion Gap 14 mmol/L 08/10/20 11:37 BUN 28 mg/dL (9-20) H 08/10/20 11:37 Creatinine 0.9 mg/dL (0.8-1.3) 08/10/20 11:37 Estimated GFR > 60 ml/min 08/10/20 11:37 BUN/Creatinine Ratio 31 % 08/10/20 11:37 Glucose 450 mg/dL (75-100) H 08/10/20 11:37 POC Glucose 144 mg/dL (70-105) H 08/10/20 17:57 Calcium 10.4 mg/dL (8.4-10.2) H 08/10/20 11:37 Total Bilirubin 0.30 mg/dL (0.1-1.2) 08/10/20 11:37 AST 11 units/L (5-40) 08/10/20 11:37 ALT 21 units/L (7-56) 08/10/20 11:37 Alkaline Phosphatase 134 units/L (35-129) H 08/10/20 11:37 Troponin T < 0.010 ng/mL (0.00-0.029) 08/10/20 15:51 Total Protein 7.4 g/dL (6.3-8.2) 08/10/20 11:37 Albumin 4.5 g/dL (3.9-5) 08/10/20 11:37 Albumin/Globulin Ratio 1.6 % 08/10/20 11:37 Urine Color Yellow (Yellow) 08/10/20 13:44 Urine Turbidity Clear (Clear) 08/10/20 13:44 Urine pH 5.0 (5.0-7.0) 08/10/20 13:44 Ur Specific Eldred 1.037 (1.003-1.030) H 08/10/20 13:44 Urine Protein <15 mg/dl mg/dL (Negative) 08/10/20 13:44 Urine Glucose (UA) >=500 mg/dL (Negative) 08/10/20 13:44 Urine Ketones Tr mg/dL (Negative) 08/10/20 13:44 Urine Blood Neg (Negative) 08/10/20 13:44 Urine Nitrite Neg (Negative) 08/10/20 13:44 Urine Bilirubin Neg (Negative) 08/10/20 13:44 Urine Urobilinogen < 2.0 mg/dL (<2.0) 08/10/20 13:44 Ur Leukocyte Esterase Neg (Negative) 08/10/20 13:44 Urine WBC (Auto) 1.0 /HPF (0.0-6.0) 08/10/20 13:44 Urine RBC (Auto) 1.0 /HPF (0.0-6.0) 08/10/20 13:44 Hyaline Casts 1 /LPF 08/10/20 13:44 Urine Mucus Few /HPF 08/10/20 13:44 Spivey/IV: Voiding Method Toilet Active Medications - Current Medications Current Medications: Generic Name Dose Route Start Last Admin Trade Name Freq PRN Reason Stop Dose Admin Acetaminophen 650 mg 08/10/20 16:45 Acetaminophen 325 Mg Tab PO Q4H PRN Pain MILD(1-3)/Fever >100.5/DIETZ Pantoprazole Sodium 80 mg/ 100 mls @ 10 mls/hr 08/10/20 14:00 08/11/20 03:44 Sodium Chloride IV 08/11/20 13:59 8 mg/hr DIRECT MERON 10 mls/hr Administration 8 MG/HR Sodium Chloride 1,000 mls @ 100 mls/hr 08/10/20 17:00 08/11/20 05:23 Nacl 0.9% 1000 Ml IV 100 mls/hr DIRECT MERON Administration Ondansetron HCl 4 mg 08/10/20 16:45 Ondansetron 4 Mg/2 Ml Inj IV Q8H PRN Nausea And Vomiting Pantoprazole Sodium 40 mg 08/11/20 22:00 Pantoprazole 40 Mg Inj IV BID MERON Sodium Chloride 10 ml 08/10/20 22:00 08/11/20 10:10 Sodium Chloride 0.9% 10 Ml Flush Syringe IV 10 ml BID MERON Administration Sodium Chloride 10 ml 08/10/20 16:45 Sodium Chloride 0.9% 10 Ml Flush Syringe IV PRN PRN LINE FLUSH Sucralfate 1 gm 08/10/20 22:00 08/10/20 21:01 Sucralfate 1 Gm/10 Ml Oral Liqd PO 1 gm ACHS MERON Administration Nutrition/Malnutrition Assess - Dietary Evaluation Nutrition/Malnutrition Findings: Nutrition Notes Start: 08/11/20 09:46 Freq: Status: Active Protocol: Document 08/11/20 09:46 AT (Rec: 08/11/20 09:50 AT [id number]) Co-Sign 08/11/20 09:46 CW Nutrition Notes 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 Per chart, pt has a Wilfredo Score of 20 without any integumentary symptoms.
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
[2020-08-11] MEDS: PANTOPRAZOLE 40 MG INJ IV SCH (22:13)
[2020-08-12] MEDS: SODIUM CHLORIDE 0.9% 1000 ML 1,000 ML IV SCH (02:48)
[2020-08-12 05:28] LABS: Basophils # (Auto) 0.1 K/mm3 (0.0-0.1); Basophils % (Auto) 1.1 % (0.0-1.8); Eosinophils # (Auto) 0.5 K/mm3 (0.0-0.4); Eosinophils % (Auto) 7.1 % (0.0-4.3); Hemoglobin 13.5 gm/dl (11.8-15.2); Lymphocytes # (Auto) 2.5 K/mm3 (1.2-5.4); Lymphocytes % (Auto) 32.4 % (13.4-35.0); Mean Corpuscular HGB Conc 35 % (32-34); Mean Corpuscular Volume 89 fl (84-94); Monocytes # (Auto) 0.5 K/mm3 (0.0-0.8); Monocytes % (Auto) 6.5 % (0.0-7.3); Platelet Count 255 K/mm3 (140-440); Red Blood Count 4.41 M/mm3 (3.65-5.03); Red Cell Distribution Width 12.4 % (13.2-15.2)
[2020-08-12 05:48] LABS: Blood Urea Nitrogen 8 mg/dL (9-20); Calcium 8.8 mg/dL (8.4-10.2); Hemolysis Index 10
[2020-08-12 05:50] LABS: BUN/Creatinine Ratio 13
[2020-08-12] MEDS: SUCRALFATE 1 GM/10 ML ORAL LIQD PO SCH (09:00)
[2020-08-12] MEDS ORDERED: SODIUM CHLORIDE 0.9% 1000 ML 1,000 ML IV SCH (09:00)
[2020-08-12] MEDS: PANTOPRAZOLE 40 MG INJ IV SCH (09:01)
[2020-08-12] MEDS ORDERED: WATER FOR IRRIG STERILE 250 ML BOTTLE IR ONE (09:29)
--- NOTE | 2020-08-12 09:29 | Anesthesia Consultation ---
Anesthesia Consult and Med Hx Date of service: 08/12/20 - Airway Anesthetic Teeth Evaluation: Poor (multiple missing, broken teeth) ROM Head & Neck: Adequate Mental/Hyoid Distance: Adequate Mallampati Class: Class II Intubation Access Assessment: Probably Good - Pre-Operative Health Status ASA Pre-Surgery Classification: ASA3 Proposed Anesthetic Plan: MAC - Pulmonary Hx Smoking: Yes (1 p/day x 20 years, recently 1/3 p/day) Hx Asthma: No Hx Pneumonia: No - Central Nervous System Hx Seizures: Yes (last 3 years ago) - Gastrointestinal Hx Ulcer: Yes (GI bleed) Hx Gastroesophageal Reflux Disease: Yes - Endocrine Hx Insulin Dependent Diabetes: Yes (recent DKA) - Hematic Hx Anemia: Yes
--- NOTE | 2020-08-12 09:29 | Anesthesia Day of Surgery ---
Anesthesia Day of Surgery - Day of Surgery Patient Examined: Yes Patient H&P Reviewed: Yes Patient is NPO: Yes
[2020-08-12] MEDS ORDERED: LIDOCAINE MPF (2%) 20 MG/1 ML VIAL 5 ML ONE (09:31)
[2020-08-12] MEDS ORDERED: propofoL 200 MG/20 ML VIAL IV ONE (09:31)
--- NOTE | 2020-08-12 09:57 | Post Operative Note ---
Pre-op diagnosis: Hematemesis Post-op diagnosis: other (Normal EGD) Findings: 1. Normal esophagus with Z-line at 40 cm. 2. Normal stomach. 3. Normal duodenum and bulb. No evidence of GI bleed, or source. Procedure: EGD Anesthesia: MAC Surgeon: FRANKI CUEVAS Estimated blood loss: none Pathology: none Condition: stable Disposition: floor (Okay to D/C home from GI standpoint. Chronic PPI and better DM control.)
--- NOTE | 2020-08-12 10:13 | Operative Report ---
UPPER ENDOSCOPY REPORT PROCEDURE: Upper endoscopy. PREOPERATIVE DIAGNOSIS: Hematemesis. POSTOPERATIVE DIAGNOSIS: Normal endoscopy. SEDATION: MAC by Anesthesia. HISTORY: The patient is a 40-year-old man with poorly controlled diabetes, who came in complaining of 3 episodes of hematemesis with no preceding nausea or vomiting. He also complained of heartburn. DESCRIPTION OF PROCEDURE: Indications, risks, and benefits were explained and consent was obtained. The patient was placed in left lateral decubitus position and sedated. Video endoscope was passed through the mouth and oropharynx into the descending duodenum. Scope was then gradually withdrawn with close inspection of the mucosa. FINDINGS: 1. Normal esophagus with sharp Z-line located at 40 cm. 2. Normal appearing gastric antrum, fundus, body, and cardia. 3. Normal appearing duodenal bulb and duodenum. The patient tolerated procedure well without immediate complications. IMPRESSION: 1. Normal upper endoscopy. 2. No evidence of bleeding source such as esophagitis, Marva-White tear, or peptic ulcer disease. RECOMMENDATIONS: 1. May discharge to home from GI standpoint. 2. Chronic proton pump inhibitors. 3. Better diabetic control as DKA and is playing a role in his nausea, vomiting symptoms. JOB# [id number] HRC/NTS
--- NOTE | 2020-08-12 12:06 | Discharge Summary ---
Providers - Providers Date of Admission: 08/11/20 17:41 Date of discharge: 08/12/20 Attending physician: TARA SHABAZZ 08/11/20 12:13 Consult to Physician [CONS] Routine Comment: Consulting Provider: VINCE BISHOP Physician Instructions: Reason For Exam: Hematemesis Primary care physician: CURATOR Hospitalization Condition: Fair Disposition: DC-01 TO HOME OR SELFCARE Time spent for discharge: 35 min Core Measure Documentation - Palliative Care Palliative Care/ Comfort Measures: Not Applicable - Core Measures Any of the following diagnoses?: none Exam - Constitutional Vitals: Temp Pulse Resp BP Pulse Ox 98.2 F 83 16 121/81 99 08/12/20 10:20 08/12/20 10:20 08/12/20 10:20 08/12/20 10:20 08/12/20 10:20 General appearance: Present: no acute distress, well-nourished - EENT Eyes: Present: PERRL, EOM intact - Neck Neck: Present: supple, normal ROM - Respiratory Respiratory effort: normal Respiratory: bilateral: diminished, negative: rales, rhonchi, wheezing - Cardiovascular Rhythm: regular Heart Sounds: Present: S1 & S2 - Extremities Extremities: no ischemia, No edema - Abdominal General gastrointestinal: Present: soft, non-tender, non-distended, normal bowel sounds - Integumentary Integumentary: Present: clear, warm - Musculoskeletal Musculoskeletal: strength equal bilaterally - Psychiatric Psychiatric: appropriate mood/affect, cooperative - Neurologic Neurologic: CNII-XII intact, moves all extremities Plan Activity: no restrictions Diet: diabetic Additional Instructions: Advised to avoid NSAIDs and aspirin. If you have wors ening symptoms contact MD or go to emergency room. Advised to follow with GI in 1 week or as needed Follow up with: PRIMARY CAREMD [Primary Care Provider] - 3-5 Days FRANKI CUEVAS MD [Staff Physician] - 7 Days Prescriptions: Pantoprazole [Protonix TAB] 40 mg PO BID #60 tablet
[2020-08-12 12:39] VITALS: BP 117/83
--- NOTE | 2020-08-12 14:39 | Post Anesthesia Evaluation ---
- Post Anesthesia Evaluation Patient Participated: Yes Airway Patent: Yes Stable Respiratory Function: Yes Nausea/Vomiting: No Temp > 96.8F: Yes Pain Manageable: Yes Adequeate Hydration: Yes Anesthesia Complications: No
--- NOTE | 2020-08-13 17:40 | Post Anesthesia Evaluation ---
- Post Anesthesia Evaluation Patient Participated: Yes Airway Patent: Yes Stable Respiratory Function: Yes Nausea/Vomiting: No Temp > 96.8F: Yes Pain Manageable: Yes Adequeate Hydration: Yes Anesthesia Complications: No Other Comments: POD1 s/p endoscopy under MAC. Evaluated prior to d/c.
== END 2020-08-12 13:20 | disposition home or self-care (01) | DRG 378 ==
LOC: ED 10:57 → INTOOBSV 16:02 → 3A 16:02 → OBSVTOIN 08-11 17:41
PROVIDERS: ADMIT Internal Medicine; ATTEND Internal Medicine
PROC: 0DJ08ZZ Inspection of Upper Intestinal Tract, Via Natural or Artificial Opening Endoscopic (ICD-10-PCS; principal; 2020-08-12)
DX: K29.01 Acute gastritis with bleeding (principal); Z68.42 Body mass index [BMI] 45.0-49.9, adult; E11.65 Type 2 diabetes mellitus with hyperglycemia; F17.200 Nicotine dependence, unspecified, uncomplicated; E66.01 Morbid (severe) obesity due to excess calories; K22.6 Gastro-esophageal laceration-hemorrhage syndrome; K21.9 Gastro-esophageal reflux disease without esophagitis; Z71.3 Dietary counseling and surveillance; Z79.899 Other long term (current) drug therapy; Z82.49 Family history of ischemic heart disease and other diseases of the circulatory system; Z79.4 Long term (current) use of insulin
CPT/HCPCS: 36415; 71045; 74177; 80048; 80053; 81001; 82805; 82962; 83036; 84484; 85025; 85610; 85730; 96365; 96375; 99406; G0378; C9113; J1815; J2270; J2405; J2704; J7030; Q9967

== ENCOUNTER 2020-10-17 17:55 | Inpatient (IN) | payer OTHER ==
--- NOTE | 2020-10-17 18:17 | Event Note ---
ED Screening Note ED Screening Note: Patient presents for nausea and vomiting that began around 5 or 6 AM He states that last time this happened he was in DKA States he also has elevated heart rate He states that his blood glucose was checked by the ambulance and was approximately 270 He states he uses NovoLog for his diabetes He states he has some upper abdominal discomfort No fever, diarrhea, chest pain, shortness of breath, urinary symptoms pt endorses tobacco use pt denies alcohol and drug use This initial assessment/diagnostic orders/clinical plan/treatment(s) is/are subject to change based on patients health status, clinical progression and re- assessment by fellow clinical providers in the ED. Further treatment and workup at subsequent clinical providers discretion. Patient/guardian urged not to elope from the ED as their condition may be serious if not clinically assessed and managed. Initial orders include: Labs, urine, EKG
[2020-10-17 18:47] LABS: Basophils % (Auto) 0.3 % (0.0-1.8); Eosinophils # (Auto) 0.2 K/mm3 (0.0-0.4); Eosinophils % (Auto) 1.4 % (0.0-4.3); Hematocrit 48.6 % (35.5-45.6); Hemoglobin 16.7 gm/dl (11.8-15.2); Lymphocytes % (Auto) 13.6 % (13.4-35.0); Mean Corpuscular HGB Conc 34 % (32-34); Mean Corpuscular Volume 89 fl (84-94); Monocytes % (Auto) 7.2 % (0.0-7.3); Platelet Count 357 K/mm3 (140-440); Red Blood Count 5.44 M/mm3 (3.65-5.03); Red Cell Distribution Width 13.3 % (13.2-15.2)
[2020-10-17 19:04] LABS: Alanine Aminotransferase 16 units/L (7-56); Albumin 4.5 g/dL (3.9-5); BUN/Creatinine Ratio 34; Blood Urea Nitrogen 34 mg/dL (9-20); Calcium 11.4 mg/dL (8.4-10.2); Hemolysis Index 15
[2020-10-17 19:10] LABS: Bilirubin,Urine NEG (Negative); Blood,Urine NEG (Negative); Color,Urine Yellow (Yellow); Hyaline Casts,Urine 4 /LPF; Mucus,Urine FEW /HPF; Urobilinogen,Urine < 2.0 mg/dL (<2.0)
[2020-10-17] MEDS ORDERED: ONDANSETRON 4 MG/2 ML INJ IM ONE (19:22)
[2020-10-17 19:44] LABS: Benzodiazepines Screen,Urine Negative; Cannabinoid Screen,Urine Negative; Cocaine Screen,Urine Negative; Methadone Screen,Urine Negative; Opiate Screen,Urine Negative
--- NOTE | 2020-10-17 19:59 | XRay Report ---
ABDOMEN 4 VIEW(S) with frontal chest INDICATION / CLINICAL INFORMATION: CP and abd pain. COMPARISON: None available. FINDINGS: TUBES / LINES: None. BOWEL GAS PATTERN: No significant abnormality. FREE AIR / EXTRALUMINAL GAS: None seen. Chest: No significant additional findings. IMPRESSION: Large stool burden identified throughout the colon. Signer Name: Lorenzo Manzano MD Signed: 10/17/2020 7:55 PM Workstation Name: [id number]
[2020-10-17 20:15] LABS: Amphetamine Screen,Urine Positive
[2020-10-18] MEDS ORDERED: METOCLOPRAMIDE 10 MG/2 ML INJ IV ONE (01:04)
[2020-10-18] MEDS ORDERED: SODIUM CHLORIDE 0.9% 1000 ML 1,000 ML IV ONE ×2 (01:04→01:08)
[2020-10-18] MEDS ORDERED: PANTOPRAZOLE 40 MG INJ IV ONE (01:04)
--- NOTE | 2020-10-18 01:08 | Emergency Department Report ---
ED General Adult HPI - General Chief complaint: Nausea/Vomiting/Diarrhea Stated complaint: HIGH HEART RATE Time Seen by Provider: 10/17/20 18:15 Source: patient Mode of arrival: Ambulatory Limitations: No Limitations - History of Present Illness Initial comments: Patient is 40 years old male with history of type 1 diabetes on insulin. Patient presented to the ER with nausea, vomiting and epigastric abdominal pain since yesterday morning. Patient stated that he is unable to keep anything down. Patient denied any fever or chills. Patient denied any diarrhea. Patient also stated that he did not took his insulin for the last 2 days. - Related Data Previous Rx's Medication Instructions Recorded Last Taken Type Hydrocort/Pramoxine [Proctofoam-Hc] 1 applicatio NE BID #1 can 04/12/19 Unknown Rx Lidocaine [Lidocaine Cream] 30 gm TP PRN PRN #1 tube 04/12/19 Unknown Rx Insulin NPH Hum/Reg Insulin Hm 20 unit SQ BIDAC #2 vial 04/21/19 Unknown Rx [Novolin 70-30 100 Unit/ml Vial] Insulin Regular, Human [Novolin R] See Protocol SQ Q24H #1 vial 04/21/19 Unknown Rx cephALEXin [Keflex] 500 mg PO BID #14 capsule 04/09/20 Unknown Rx Pantoprazole [Protonix TAB] 40 mg PO BID #60 tablet 08/12/20 Unknown Rx Allergies Allergy/AdvReac Type Severity Reaction Status Date / Time No Known Allergies Allergy Verified 04/09/20 16:28 ED Review of Systems ROS: Stated complaint: HIGH HEART RATE Other details as noted in HPI Comment: All other systems reviewed and negative Constitutional: denies: chills, fever Cardiovascular: chest pain, palpitations Gastrointestinal: abdominal pain, nausea, vomiting. denies: diarrhea, constipation, hematemesis, melena, hematochezia Musculoskeletal: denies: back pain Neurological: denies: headache, weakness ED Past Medical Hx - Past Medical History Hx Diabetes: Yes Hx Seizures: Yes (last 3 years ago) Hx Asthma: No Additional medical history: being tested for pancreatic cancer - Surgical History Additional Surgical History: Left eye - Social History Smoking Status: Never Smoker - Medications Home Medications: Home Medications Medication Instructions Recorded Confirmed Last Taken Type Hydrocort/Pramoxine [Proctofoam-Hc] 1 applicatio NE BID #1 can 04/12/19 08/10/20 Unknown Rx Lidocaine [Lidocaine Cream] 30 gm TP PRN PRN #1 tube 04/12/19 08/10/20 Unknown Rx Insulin NPH Hum/Reg Insulin Hm 20 unit SQ BIDAC #2 vial 04/21/19 08/10/20 Unknown Rx [Novolin 70-30 100 Unit/ml Vial] Insulin Regular, Human [Novolin R] See Protocol SQ Q24H #1 vial 04/21/19 08/10/20 Unknown Rx cephALEXin [Keflex] 500 mg PO BID #14 capsule 04/09/20 08/10/20 Unknown Rx Pantoprazole [Protonix TAB] 40 mg PO BID #60 tablet 08/12/20 Unknown Rx ED Physical Exam - General Limitations: No Limitations General appearance: alert, in no apparent distress - Head Head exam: Present: atraumatic, normocephalic, normal inspection - Eye Eye exam: Present: normal appearance - ENT ENT exam: Present: mucous membranes dry - Neck Neck exam: Present: normal inspection, full ROM. Absent: tenderness, meningismus - Respiratory Respiratory exam: Present: normal lung sounds bilaterally - Cardiovascular Cardiovascular Exam: Present: tachycardia - GI/Abdominal GI/Abdominal exam: Present: soft, normal bowel sounds. Absent: distended, tenderness, guarding, rebound, rigid, organomegaly, mass, bruit, pulsatile mass, hernia - Extremities Exam Extremities exam: Present: normal inspection, full ROM, normal capillary refill. Absent: tenderness - Back Exam Back exam: Present: normal inspection, full ROM. Absent: CVA tenderness (R), CVA tenderness (L) - Neurological Exam Neurological exam: Present: alert, oriented X3, CN II-XII intact - Psychiatric Psychiatric exam: Present: anxious. Absent: homicidal ideation, suicidal ideation - Skin Skin exam: Present: warm, dry, intact ED Course Vital Signs 10/17/20 10/18/20 10/18/20 18:15 00:55 01:01 Temperature 98.8 F Pulse Rate 129 H 116 H Respiratory 20 23 Rate Blood Pressure 112/84 118/82 O2 Sat by Pulse 97 100 99 Oximetry 10/18/20 10/18/20 10/18/20 01:15 01:30 01:45 Temperature Pulse Rate 111 H Respiratory 16 Rate Blood Pressure 125/88 125/88 145/96 O2 Sat by Pulse 62 L 99 95 Oximetry ED Medical Decision Making - Lab Data Result diagrams: 10/17/20 18:25 10/18/20 01:17 - EKG Data -: EKG Interpreted by Me EKG shows normal: sinus rhythm Rate: tachycardia - Radiology Data Radiology results: report reviewed - Medical Decision Making Patient is 40 years old male with history of type 1 diabetes on insulin. Patient presented to the ER with nausea, vomiting and epigastric abdominal pain since yesterday morning. Patient stated that he is unable to keep anything down. Patient denied any fever or chills. Patient denied any diarrhea. Patient also stated that he did not took his insulin for the last 2 days. Patient found to be in DKA with anion gap of 25. Patient started on normal saline and insulin drip. I discussed the patient with Dr. Winston, he agreed to admit the patient to medical service for further management. Critical Care Time: Yes Critical care time in (mins) excluding proc time.: 30 Critical care attestation.: If time is entered above; I have spent that time in minutes in the direct care of this critically ill patient, excluding procedure time. ED Disposition Clinical Impression: DKA (diabetic ketoacidoses) Disposition: OP ADMIT IP TO THIS HOSP Is pt being admited?: Yes Condition: Stable Instructions: Diabetic Ketoacidosis (ED) Referrals: PRIMARY CARE, [Primary Care Provider] - 3-5 Days
[2020-10-18] MEDS ORDERED: INSULIN REGULAR, HUMAN 100 UNITS in SODIUM CHLORIDE 0.9% 99 ML IV SCH (02:00)
[2020-10-18 02:04] LABS: BUN/Creatinine Ratio 33; Blood Urea Nitrogen 40 mg/dL (9-20); Calcium 11.1 mg/dL (8.4-10.2); Hemolysis Index 7
[2020-10-18] MEDS ORDERED: DEXTROSE 50% IN WATER (25GM) 50 ML SYRINGE IV PRN ×2 (03:10→11:06)
[2020-10-18] MEDS ORDERED: MAGNESIUM HYDROXIDE (MOM) ORAL LIQD UDC PO PRN (03:10)
[2020-10-18] MEDS ORDERED: MORPHINE 2 MG/1 ML INJ IV PRN (03:10)
--- NOTE | 2020-10-18 03:15 | Cat Scan Report ---
CT ABDOMEN AND PELVIS WITH CONTRAST INDICATION / CLINICAL INFORMATION: Unspecified abdominal pain. TECHNIQUE: Axial CT images were obtained through the abdomen and pelvis after 100 cc Omnipaque [address] scans at this location are performed using CT dose reduction for ALARA by means of automated exposure control. COMPARISON: CT abdomen and pelvis with contrast from 08/10/2020 FINDINGS: LOWER CHEST: No significant abnormality. LIVER: No significant abnormality. GALLBLADDER: No significant abnormality. BILE DUCTS: No significant abnormality. PANCREAS: No significant abnormality. SPLEEN: No significant abnormality. ADRENALS: No significant abnormality. RIGHT KIDNEY / URETER: No significant abnormality. LEFT KIDNEY / URETER: Subcentimeter left renal cysts are noted without other significant abnormalitie s. STOMACH / SMALL BOWEL: No significant abnormality. COLON: No significant abnormality. APPENDIX: No significant abnormality. PERITONEUM: No free fluid. No free air. No fluid collection. LYMPH NODES: No significant adenopathy. AORTA / ARTERIES: No significant abnormality. IVC / VEINS: No significant abnormality. URINARY BLADDER: There is similar nonspecific mild generalized bladder wall thickening without other significant abnormalities. REPRODUCTIVE ORGANS: No significant abnormality. ADDITIONAL FINDINGS: None. SKELETAL SYSTEM: No significant abnormality. IMPRESSION: 1. No acute findings. 2. Additional findings as above. Signer Name: Nathaniel Cox MD Signed: 10/18/2020 3:10 AM Workstation Name: [id number]
--- NOTE | 2020-10-18 03:30 | History and Physical Report ---
History of Present Illness Date of examination: 10/18/20 Date of admission: 10/18/20 02:24 Chief complaint: Nausea and Vomiting. History of present illness: 40-year-old white male with known history of diabetes mellitus type 1 presents to the emergency room today complaining of nausea vomiting and abdominal pain for about 48 hours. Patient states he has not been able to keep any food down in the stomach. He is currently incarcerated. He denies any fever or chills, no diarrhea, no headache or dizziness, no hematuria or dysuria. He states he has not used his insulin in the past 2 days. Work-up in the emergency room today work-up reveals patient is in DKA. Patient admitted to the intensive care unit and placed on IV fluid and insulin drip. Past History Past Medical History: diabetes, seizures Past Surgical History: Other (Left eye surgery) Social history: no significant social history Family history: no significant family history Medications and Allergies Allergies Allergy/AdvReac Type Severity Reaction Status Date / Time No Known Allergies Allergy Verified 04/09/20 16:28 Home Medications Medication Instructions Recorded Confirmed Last Taken Type Hydrocort/Pramoxine [Proctofoam-Hc] 1 applicatio [place] BID #1 can 04/12/19 08/10/20 Unknown Rx Lidocaine [Lidocaine Cream] 30 gm TP PRN PRN #1 tube 04/12/19 08/10/20 Unknown Rx Insulin NPH Hum/Reg Insulin Hm 20 unit SQ BIDAC #2 vial 04/21/19 08/10/20 Unknown Rx [Novolin 70-30 100 Unit/ml Vial] Insulin Regular, Human [Novolin R] See Protocol SQ Q24H #1 vial 04/21/19 08/10/20 Unknown Rx cephALEXin [Keflex] 500 mg PO BID #14 capsule 04/09/20 08/10/20 Unknown Rx Pantoprazole [Protonix TAB] 40 mg PO BID #60 tablet 08/12/20 Unknown Rx Active Meds: Active Medications Dextrose (Dextrose 50% In Water (25gm) 50 Ml Syringe) 0 ml IV Q30MIN PRN; Protocol PRN Reason: Hypoglycemia Enoxaparin Sodium (Enoxaparin 40 Mg/0.4 Ml Inj) 40 mg SUB-Q QDAY@2200 MERON; Protocol Insulin Human Regular 100 (units/ Sodium Chloride) 100 mls @ 1 mls/hr IV TITR MERON; Protocol Last Admin: 10/18/20 01:59 Dose: 8 units/hr, 8 mls/hr Documented by: Potassium Chloride/Dextrose/Sod Cl (D5w/0.45% Nacl/Kcl 20 Meq) 20 meq in 1,000 mls @ 125 mls/hr IV DIRECT MERON Magnesium Hydroxide (Magnesium Hydroxide (Mom) Oral Liqd Udc) 30 ml PO Q4H PRN PRN Reason: Constipation Morphine Sulfate (Morphine 2 Mg/1 Ml Inj) 2 mg IV Q4H PRN PRN Reason: Pain, Moderate (4-6) Sodium Chloride (Sodium Chloride 0.9% 10 Ml Flush Syringe) 10 ml IV BID MERON Sodium Chloride (Sodium Chloride 0.9% 10 Ml Flush Syringe) 10 ml IV PRN PRN PRN Reason: LINE FLUSH Review of Systems Constitutional: no fever, no chills Ears, nose, mouth and throat: no nasal congestion, no sore throat Cardiovascular: no chest pain, no palpitations Respiratory: no cough, no shortness of breath Gastrointestinal: abdominal pain, nausea, vomiting, no diarrhea Genitourinary Male: no dysuria, no hematuria, no flank pain, no nocturia Musculoskeletal: no neck pain, no low back pain Integumentary: no rash, no pruritis Neurological: no headaches, no confusion Psychiatric: no anxiety, no depression Endocrine: no polyphagia, no polydipsia, no polyuria, no nocturia Exam - Constitutional Vitals: Temp Pulse Resp BP Pulse Ox 98.8 F 111 H 16 145/96 95 10/17/20 18:15 10/18/20 01:45 10/18/20 01:45 10/18/20 01:45 10/18/20 01:45 General appearance: Present: no acute distress, well-nourished - EENT Eyes: Present: PERRL, EOM intact. Absent: scleral icterus ENT: hearing intact, clear oral mucosa, dentition normal - Neck Neck: Present: supple, normal ROM - Respiratory Respiratory effort: normal Respiratory: bilateral: CTA - Cardiovascular Rhythm: regular Heart Sounds: Present: S1 & S2, gallop. Absent: systolic murmur, diastolic murmur, rub, click - Extremities Extremities: no ischemia, pulses intact, pulses symmetrical, No edema, normal temperature, normal color, Full ROM Peripheral Pulses: within normal limits - Abdominal General gastrointestinal: Present: soft, non-tender, non-distended, normal bowel sounds. Absent: mass - Integumentary Integumentary: Present: clear, warm, dry, normal turgor. Absent: rash - Musculoskeletal Musculoskeletal: strength equal bilaterally - Psychiatric Psychiatric: appropriate mood/affect, intact judgment & insight, memory intact, cooperative - Neurologic Neurologic: CNII-XII intact, no focal deficits, moves all extremities HEART Score - HEART Score Troponin: Troponin T < 0.010 ng/mL (0.00-0.029) 10/18/20 01:17 Results - Labs CBC & Chem 7: 10/17/20 18:25 10/18/20 04:47 Labs: Abnormal lab results 10/17/20 10/17/20 10/17/20 Range/Units 18:19 18:25 18:25 WBC 14.4 H (4.5-11.0) K/mm3 RBC 5.44 H (3.65-5.03) M/mm3 Hgb 16.7 H (11.8-15.2) gm/dl Hct 48.6 H (35.5-45.6) % [place] # (Auto) 1.0 H (0.0-0.8) K/mm3 Seg Neutrophils % 77.5 H (40.0-70.0) % Seg Neutrophils # 11.2 H (1.8-7.7) K/mm3 VBG pH (7.320-7.420) Sodium 133 L (137-145) mmol/L Potassium (3.6-5.0) mmol/L Chloride 89.4 L (98-107) mmol/L BUN 34 H (9-20) mg/dL Glucose 373 H (75-100) mg/dL POC Glucose 348 H (70-105) mg/dL Calcium 11.4 H (8.4-10.2) mg/dL Alkaline Phosphatase 147 H (35-129) units/L Total Creatine Kinase 25 L (55-170) units/L Ur Specific [place] (1.003-1.030) 10/17/20 10/17/20 10/18/20 Range/Units 18:25 18:40 00:45 WBC (4.5-11.0) K/mm3 RBC (3.65-5.03) M/mm3 Hgb (11.8-15.2) gm/dl Hct (35.5-45.6) % [place] # (Auto) (0.0-0.8) K/mm3 Seg Neutrophils % (40.0-70.0) % Seg Neutrophils # (1.8-7.7) K/mm3 VBG pH 7.450 H (7.320-7.420) Sodium (137-145) mmol/L Potassium (3.6-5.0) mmol/L Chloride (98-107) mmol/L BUN (9-20) mg/dL Glucose (75-100) mg/dL POC Glucose 436 H (70-105) mg/dL Calcium (8.4-10.2) mg/dL Alkaline Phosphatase (35-129) units/L Total Creatine Kinase (55-170) units/L Ur Specific [place] 1.031 H (1.003-1.030) 10/18/20 10/18/20 Range/Units 01:17 03:16 WBC (4.5-11.0) K/mm3 RBC (3.65-5.03) M/mm3 Hgb (11.8-15.2) gm/dl Hct (35.5-45.6) % [place] # (Auto) (0.0-0.8) K/mm3 Seg Neutrophils % (40.0-70.0) % Seg Neutrophils # (1.8-7.7) K/mm3 VBG pH (7.320-7.420) Sodium 132 L (137-145) mmol/L Potassium 5.4 H (3.6-5.0) mmol/L Chloride 85.2 L (98-107) mmol/L BUN 40 H (9-20) mg/dL Glucose 434 H (75-100) mg/dL POC Glucose 352 H (70-105) mg/dL Calcium 11.1 H (8.4-10.2) mg/dL Alkaline Phosphatase (35-129) units/L Total Creatine Kinase (55-170) units/L Ur Specific [place] (1.003-1.030) Assessment and Plan - Patient Problems (1) DKA (diabetic ketoacidoses) Current Visit: Yes Status: Acute Plan to address problem: Patient started on IV fluid and insulin drip according to protocol. We will monitor Accu-Cheks closely. (2) Abdominal pain Current Visit: No Status: Acute Qualifiers: Abdominal location: epigastric Qualified Code(s): R10.13 - Epigastric pain Plan to address problem: Possibly secondary to the intractable nausea and vomiting. We will place on IV analgesic medication as needed. (3) Nausea & vomiting Current Visit: No Status: Acute Qualifiers: Vomiting type: hematemesis Qualified Code(s): K92.0 - Hematemesis Plan to address problem: Patient placed on IV Zofran as needed. (4) DVT prophylaxis Current Visit: No Status: Acute Plan to address problem: Patient placed on subcutaneous Lovenox. (5) Full code status Current Visit: No Status: Acute Plan to address problem: Patient is full code.
[2020-10-18] MEDS ORDERED: D5W/0.45% NACL/KCL 20 MEQ 20 MEQ/1,000 ML BAG IV SCH (04:00)
[2020-10-18 05:27] LABS: BUN/Creatinine Ratio 37; Blood Urea Nitrogen 37 mg/dL (9-20); Hemolysis Index 18
[2020-10-18] MEDS ORDERED: INSULIN NPH/REGULAR 70/30 INJ SUB-Q SCH (09:00)
[2020-10-18] MEDS: INSULIN LISPRO 100 UNIT/ML SUB-Q SCH ×2 (09:05→11:30)
--- NOTE | 2020-10-18 11:06 | Event Note ---
Date: 10/18/20 40 year old M with DM admitted with GI symptoms found to have DKA. Started on IV insulin and transferred to critical care unit Anion gap closed this AM Ordered NPH and sliding scale. DC insulin drip 2 hours after subcut insulin administration Check HbA1C Transfer to med floor Possible DC in 24 hours if he remains stable.
[2020-10-18 11:41] VITALS: BP 140/74
--- NOTE | 2020-10-18 13:40 | Event Note ---
Date: 10/18/20 Consulted about ICU admission for DKA - patient already off protocol and no further ICU admission needs - please reconsult as needed Thanks
[2020-10-18] MEDS ORDERED: ENOXAPARIN 40 MG/0.4 ML INJ SUB-Q SCH (22:00)
--- NOTE | 2020-10-20 17:45 | Electrocardiograph Report ---
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
--- NOTE | 2020-10-20 17:45 | Electrocardiograph Report ---
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
--- NOTE | 2020-10-26 13:45 | Discharge Summary ---
Providers - Providers Date of Admission: 10/18/20 02:24 Date of discharge: 10/18/20 Attending physician: CASH JENNINGS 10/18/20 03:11 Consult to Dietitian/Nutrition [CONS] Routine Physician Instructions: Reason For Exam: Reason for Consult: Diet education Consult to Physician [CONS] Routine Comment: Consulting Provider: MARGARITO WEST Physician Instructions: Reason For Exam: DKA- ON INSULIN DRIP Primary care physician: [employer] Hospitalization Condition: Stable Hospital course: 40-year-old white male with known history of diabetes mellitus type 1 presents to the emergency room today complaining of nausea vomiting and abdominal pain for about 48 hours. Patient states he has not been able to keep any food down in the stomach. He is currently incarcerated. He denies any fever or chills, no diarrhea, no headache or dizziness, no hematuria or dysuria. He states he has not used his insulin in the past 2 days. Work-up in the emergency room today work-up reveals patient is in DKA. Patient admitted to the intensive care unit and placed on IV fluid and insulin drip. While on insulin drip, patient's blood glucose improved and anion gap closed so he was transitioned to subcutaneous insulin. Patient subsequently decided to leave AGAINST MEDICAL ADVICE as he asked us to arrange at home. He then left AMA despite knowing the risk of consequences of leaving with poorly controlled blood glucose. He understands consequences and still left. Disposition: DC-01 TO HOME OR SELFCARE Final Discharge Diagnosis (Prints w/discharge instructions): DKA Time spent for discharge: 25 minutes Core Measure Documentation - Palliative Care Palliative Care/ Comfort Measures: Not Applicable - Core Measures Any of the following diagnoses?: none Exam - Constitutional Vitals: Temp Pulse Resp BP Pulse Ox 98.3 F 105 H 24 140/74 98 10/18/20 08:00 10/18/20 11:31 10/18/20 11:31 10/18/20 11:31 10/18/20 11:31 General appearance: Present: no acute distress, well-nourished - EENT Eyes: Present: PERRL ENT: hearing intact, clear oral mucosa - Neck Neck: Present: supple, normal ROM - Respiratory Respiratory effort: normal Respiratory: bilateral: CTA - Cardiovascular Heart Sounds: Present: S1 & S2. Absent: rub, click - Extremities Extremities: pulses symmetrical, No edema Peripheral Pulses: within normal limits - Abdominal General gastrointestinal: Present: soft, non-tender, non-distended, normal bowel sounds Male genitourinary: Present: normal - Integumentary Integumentary: Present: clear, warm, dry - Musculoskeletal Musculoskeletal: gait normal, strength equal bilaterally - Psychiatric Psychiatric: appropriate mood/affect, intact judgment & insight - Neurologic Neurologic: CNII-XII intact, moves all extremities Plan Diet: diabetic Follow up with: PRIMARY CARE, [Primary Care Provider] - 3-5 Days
== END 2020-10-18 16:20 | disposition home or self-care (01) | DRG 638 ==
LOC: ED 17:55 → CC1 10-18 02:24 → 3A 10-18 11:45 → CC1 10-18 12:25 → 3A 10-18 12:29
PROVIDERS: ADMIT Internal Medicine Geriatric Medicine; ATTEND Internal Medicine
DX: E11.10 Type 2 diabetes mellitus with ketoacidosis without coma (principal); K92.0 Hematemesis; Z79.899 Other long term (current) drug therapy; Z79.4 Long term (current) use of insulin; Z79.01 Long term (current) use of anticoagulants; Z79.891 Long term (current) use of opiate analgesic
CPT/HCPCS: 36415; 74022; 74177; 80048; 80053; 80307; 80320; 81001; 82550; 82805; 82962; 83735; 84100; 84484; 85025; 93005; 96361; 96372; 96374; 96375; G0378; C9113; G0480; J1815; J2405; J2765; J7030; Q9967

== ENCOUNTER 2021-04-21 13:10 | Emergency (ER) | payer SELFPAY ==
[2021-04-21] MEDS ORDERED: dexAMETHasone 20 MG/5 ML VIAL IV ONE (13:34)
[2021-04-21] MEDS ORDERED: KETOROLAC 30 MG/1 ML INJ IV ONE (13:34)
[2021-04-21] MEDS ORDERED: SODIUM CHLORIDE 0.9% 1000 ML 1,000 ML IV ONE ×2 (13:35→17:39)
[2021-04-21 14:21] LABS: Basophils # (Auto) 0.1 K/mm3 (0.0-0.1); Basophils % (Auto) 0.5 % (0.0-1.8); Eosinophils # (Auto) 0.2 K/mm3 (0.0-0.4); Hemoglobin 14.3 gm/dl (11.8-15.2); Lymphocytes # (Auto) 1.3 K/mm3 (1.2-5.4); Lymphocytes % (Auto) 8.3 % (13.4-35.0); Mean Corpuscular HGB Conc 33 % (32-34); Mean Corpuscular Volume 89 fl (84-94); Monocytes # (Auto) 1.7 K/mm3 (0.0-0.8); Monocytes % (Auto) 10.8 % (0.0-7.3); Platelet Count 422 K/mm3 (140-440); Red Blood Count 4.94 M/mm3 (3.65-5.03); Red Cell Distribution Width 12.5 % (13.2-15.2)
[2021-04-21 14:36] LABS: Blood Urea Nitrogen 15 mg/dL (9-20); Calcium 9.4 mg/dL (8.4-10.2); Hemolysis Index 4
[2021-04-21 14:37] LABS: BUN/Creatinine Ratio 21
[2021-04-21] MEDS ORDERED: INSULIN REGULAR, HUMAN 100 UNITS/1 ML IV ONE (14:48)
--- NOTE | 2021-04-21 14:54 | Emergency Department Report ---
ED ENT HPI - General Chief complaint: Allergic Reaction Stated complaint: THROAT SWOLLEN Time Seen by Provider: 04/21/21 13:30 Source: patient Mode of arrival: Ambulatory Limitations: No Limitations - History of Present Illness Initial comments: 41-year-old male, history of diabetes, presents to ED with sore throat. Patient states he awoke with throat pain and swelling this morning. He denies any fever. MD complaint: sore throat -: This morning Location: throat Severity: moderate Quality: constant Consistency: constant Improves with: none Worsens with: swallowing Associated Symptoms: sore throat. denies: fever, cough - Related Data Home Medications Medication Instructions Recorded Confirmed Last Taken Insulin NPH Hum/Reg Insulin Hm 15 unit SQ BIDAC 10/18/20 10/18/20 Unknown [Novolin 70-30 100 Unit/ml Vial] Previous Rx's Medication Instructions Recorded Last Taken Type Insulin Regular, Human [Novolin R] See Protocol SQ Q24H #1 vial 04/21/19 Unknown Rx Allergies Allergy/AdvReac Type Severity Reaction Status Date / Time No Known Allergies Allergy Verified 04/21/21 13:13 ED Dental HPI - General Chief complaint: Allergic Reaction Stated complaint: THROAT SWOLLEN Time Seen by Provider: 04/21/21 13:30 Source: patient Mode of arrival: Ambulatory Limitations: No Limitations - Related Data Home Medications Medication Instructions Recorded Confirmed Last Taken Insulin NPH Hum/Reg Insulin Hm 15 unit SQ BIDAC 10/18/20 10/18/20 Unknown [Novolin 70-30 100 Unit/ml Vial] Previous Rx's Medication Instructions Recorded Last Taken Type Insulin Regular, Human [Novolin R] See Protocol SQ Q24H #1 vial 04/21/19 Unknown Rx Allergies Allergy/AdvReac Type Severity Reaction Status Date / Time No Known Allergies Allergy Verified 04/21/21 13:13 ED Review of Systems ROS: Stated complaint: THROAT SWOLLEN Other details as noted in HPI Comment: All other systems reviewed and negative Constitutional: denies: fever ENT: throat pain Respiratory: denies: cough, shortness of breath ED Past Medical Hx - Past Medical History Hx Diabetes: Yes Hx Seizures: Yes (last 3 years ago) Hx Asthma: No Additional medical history: being tested for pancreatic cancer - Surgical History Additional Surgical History: Left eye - Social History Smoking Status: Current Every Day Smoker - Medications Home Medications: Home Medications Medication Instructions Recorded Confirmed Last Taken Type Insulin Regular, Human [Novolin R] See Protocol SQ Q24H #1 vial 04/21/19 10/18/20 Unknown Rx Insulin NPH Hum/Reg Insulin Hm 15 unit SQ BIDAC 10/18/20 10/18/20 Unknown History [Novolin 70-30 100 Unit/ml Vial] ED Physical Exam - General Limitations: No Limitations General appearance: alert, in no apparent distress - Head Head exam: Present: atraumatic, normocephalic - Eye Eye exam: Present: normal appearance, EOMI - ENT ENT exam: Present: other (Swelling present to the right posterior oropharynx; uvula appears to be pushed leftward; slight trismus present w/ muffling of voice) - Neck Neck exam: Present: normal inspection. Absent: lymphadenopathy - Respiratory Respiratory exam: Present: normal lung sounds bilaterally. Absent: respiratory distress, stridor - Cardiovascular Cardiovascular Exam: Present: normal rhythm, tachycardia - GI/Abdominal GI/Abdominal exam: Present: soft. Absent: distended, tenderness - Neurological Exam Neurological exam: Present: alert, oriented X3 - Psychiatric Psychiatric exam: Present: normal affect, normal mood - Skin Skin exam: Present: warm, dry, intact, normal color ED Course Vital Signs 04/21/21 04/21/21 04/21/21 13:12 13:30 14:00 Temperature 97.9 F Pulse Rate 138 H 126 H Respiratory 18 19 Rate Blood Pressure 151/92 158/95 Blood Pressure 128/85 [Left] O2 Sat by Pulse 100 92 94 Oximetry 04/21/21 04/21/21 04/21/21 14:30 15:01 15:30 Temperature Pulse Rate 119 H 120 H 119 H Respiratory 17 19 20 Rate Blood Pressure 130/74 144/78 148/92 Blood Pressure [Left] O2 Sat by Pulse 95 93 96 Oximetry 04/21/21 04/21/21 04/21/21 16:00 17:00 17:30 Temperature 99.6 F Pulse Rate 120 H 123 H 120 H Respiratory 20 16 16 Rate Blood Pressure 151/102 151/94 133/68 Blood Pressure [Left] O2 Sat by Pulse 95 97 100 Oximetry 04/21/21 04/21/21 18:01 18:30 Temperature Pulse Rate 118 H 117 H Respiratory 17 17 Rate Blood Pressure 136/74 148/91 Blood Pressure [Left] O2 Sat by Pulse 97 97 Oximetry - Consultations Consultation #1: 04/21/21 17:[address] Cole at [facility]. 04/21/21 17:43 ER physician, Dr Nancy Brown, informed of patient. ED Medical Decision Making - Lab Data Result diagrams: 04/21/21 13:40 04/21/21 13:40 - Radiology Data Radiology results: report reviewed, image reviewed - Medical Decision Making 41-year-old male with right peritonsillar abscess on CT. Leukocytosis of 15.4. Leukos of 489. Patient does not appear to be in DKA. Patient has received IV fluids, clindamycin, Decadron, Toradol, and insulin. Patient has been accepted in transfer to [facility] by ENT physician. Currently awaiting transport. - Differential Diagnosis Strep throat, peritonsillar abscess, tonsillitis Critical care attestation.: If time is entered above; I have spent that time in minutes in the direct care of this critically ill patient, excluding procedure time. ED Disposition Clinical Impression: Hyperglycemia, Peritonsillar abscess Disposition: [address] [place] [address] Is pt being admited?: No Condition: Stable Referrals: PRIMARY CARE, [Primary Care Provider] - 3-5 Days Time of Disposition: 17:44
--- NOTE | 2021-04-21 16:51 | Cat Scan Report ---
CT NECK 04/21/2021 HISTORY: throat swelling OMNI 300 100ML. FINDINGS: Contrast enhanced CT images of the soft tissues of the neck were obtained. There is prominent bilateral tonsillar lymphoid hyperplasia present, with edema also associated with the soft palate and uvula. Tonsillar swelling is more pronounced on the right, and there is evidence of right peritonsillar abscess, measuring 2.6 cm in diameter. Mucosal thickening extends downward on the right lateral aspect of the oral pharynx to the level of t he base of the epiglottis. The epiglottis itself appears to be normal in thickness. Prominent bilateral reactive cervical adenopathy is present. IMPRESSION: Prominent tonsillar lymphoid hyperplasia with evidence of right peritonsillar abscess, 2. 6 m. Prominent reactive cervical adenopathy. All CT scans at this location are performed using dose reduction to ALARA by means of automated expos ure control. Signer Name: Som Tellez MD Signed: 04/21/2021 4:47 PM Workstation Name: [id number]
[2021-04-21] MEDS ORDERED: MORPHINE 2 MG/1 ML INJ IV ONE (17:08)
[2021-04-21] MEDS ORDERED: ONDANSETRON 4 MG/2 ML INJ IV ONE (17:08)
[2021-04-21 23:08] VITALS: BP 130/73
== END 2021-04-21 23:13 ==
LOC: ED 13:10
DX: J36 Peritonsillar abscess (principal); E11.65 Type 2 diabetes mellitus with hyperglycemia; F17.200 Nicotine dependence, unspecified, uncomplicated; Z79.4 Long term (current) use of insulin; Z79.899 Other long term (current) drug therapy
CPT/HCPCS: 36415; 70491; 80048; 82962; 85025; 96361; 96365; 96375; 99285; J2270; J2405; J7502; Q9967; J1815